=== PATIENT | female | born 1945 | race Caucasian/White ===

== ENCOUNTER 2016-03-19 18:13 | Emergency (ER) | payer OTHER ==
[2016-03-19 18:20] VITALS: BP 131/73; PULSE 101; RESP 18; TEMP 98.1; O2SAT 91
[2016-03-19] MEDS ORDERED: LIDOCAINE 2% JELLY 5 ML TUBE ONE (19:03)
--- NOTE | 2016-03-19 19:05 | EDPHY ---
H & P Time Seen by Provider: 03/19/16 19:00 HPI/ROS: HPI: 70-year-old female presents to emergency department with chief concern right coleman laceration. Occurred 1 hour prior to arrival when she bumped her right chin on a wooden cabinet in her garage. She is up-to-date with tetanus. Incurred no other injury at time of incident. I have thin skin. No weakness , numbness, or tingling of her lower extremity. Primary care providers Dr. Ferris. ROS:10 point review of systems is negative other than as stated in HPI Smoking Status: Never smoked Physical Exam: Vital signs stable, reviewed by me General: Awake, alert, calm, cooperative. No acute distress. Head: Normalocephalic. Atraumatic. EENT: PERRLA. EOMI. CV: Distal pulses 2+ bilaterally. Brisk cap refill all extremities. Neuro: Alert. Oriented x 3. Speech clear. Sensation intact all extremities. Skin: Skin warm, dry, very thin. There is a 2.5 cm x 3 cm skin tear on the anterior right mid coleman. Musculoskeletal: Strength 5+ all extremities. Constitutional: Initial Vital Signs Temperature (C) 36.7 C 03/19/16 18:18 Heart Rate 101 H 03/19/16 18:18 Respiratory Rate 18 03/19/16 18:18 Blood Pressure 131/73 H 03/19/16 18:18 O2 Sat (%) 91 L 03/19/16 18:18 O2 Delivery Mode Room Air Allergies/Adverse Reactions: amoxicillin trihydrate [From Augmentin] Allergy (Severe, Verified 03/19/16 18:17 ) SEVERE VOMITING budesonide [From Symbicort] Allergy (Severe, Verified 03/19/16 18:17) CHEST PAIN meperidine HCl [From Demerol] Allergy (Severe, Verified 03/19/16 18:17) HALLUCINATIONS latex [Latex] Allergy (Intermediate, Verified 03/19/16 18:17) Rash formoterol fumarate [From Symbicort] Allergy (Unknown, Verified 03/19/16 18:17) clindamycin Allergy (Verified 03/19/16 18:17) erythromycin base Allergy (Verified 03/19/16 18:17) fluticasone propionate [From Advair Diskus] Allergy (Verified 03/19/16 18:17) CHEST PAIN salmeterol xinafoate [From Advair Diskus] Allergy (Verified 03/19/16 18:17) CHEST PAIN tetracycline [Tetracycline] Allergy (Verified 03/19/16 18:17) THROAT SWELLS Home Medications: Medication Instructions Recorded Aspirin EC [Aspirin EC 81 mg (*)] 81 mg PO DAILY 03/19/16 Atorvastatin Calcium 80 mg PO 03/19/16 Beclomethasone Qvar 80 [Qvar 80 2 puffs IH 03/19/16 (*)] Bethanechol [Urecholine (*)] 25 mg PO AC 03/19/16 Hydrochlorothiazide [HCTZ (*)] 25 mg PO DAILY 03/19/16 Levothyroxine [Synthroid 112 mcg 112 mcg PO DAILY06 03/19/16 (*)] Losartan Potassium [Cozaar 50 mg 100 mg PO 03/19/16 (*)] Nitroglycerin [Nitrostat 0.4 mg 0.4 mg SL 03/19/16 (*)] Potassium Cl [Klor-Con] 10 meq PO 03/19/16 Pregabalin [Lyrica 50mg (*)] 50 mg PO 03/19/16 Promethazine HCl [Phenergan 25mg 25 mg PO 03/19/16 (*)] SUMAtriptan [Imitrex 50 MG (*)] 100 mg PO 03/19/16 Zolpidem Tartrate [Ambien Cr] 6.25 mg PO 03/19/16 morphINE IR [morphINE IR 15 mg (*)] 15 mg PO 03/19/16 morphINE SR [Ms Contin/Oramorph 15 15 mg PO BID 03/19/16 mg (*)] traZODone [traZODONE 50MG (*)] 50 mg PO 03/19/16 Medical Decision Making Procedures: After verbal consent was obtained and risks and benefits explained, the laceration was anesthetized using let gel. Flap laceration then irrigated per protocol by avionics repair technician. Under sterile procedure, the wound was explored to its base with a gloved finger and no foreign body was identified. No deep structure identified. Steri-Strips applied. Procedure performed by myself. Procedure was simple. Pt tolerated the procedure well. ED Course/Re-evaluation: Let gel applied. Cleanse per protocol. Steri-Strips applied. Dressing applied. Patient tolerated. Up-to-date with tetanus. Departure - Departure Disposition: Home, Routine, Self-Care Clinical Impression: Skin tear Condition: Good Instructions: Skin Tear (ED) Additional Instructions: Leave dressing on for 48 hours Follow up with primary care provider Dr. Ferris for recheck within 2-3 days without fail--When you call to schedule appointment, please let the office know you are an "ER follow up" appointment" There after, daily, wash with warm, soapy water gently. Apply antibiotic ointment. Let Steri-Strips fall off on their own. If you develop sign of infection return promptly for recheck Referrals: [place],. [Primary Care Provider] - As per Instructions
== END 2016-03-19 19:57 | disposition home or self-care (01) ==
DX: S81.811A Laceration without foreign body, right lower leg, initial encounter (principal); Z79.82 Long term (current) use of aspirin; Z91.040 Latex allergy status; W22.8XXA Striking against or struck by other objects, initial encounter

== ENCOUNTER 2016-03-22 11:39 | Emergency (ER) | payer OTHER ==
[2016-03-22 11:42] VITALS: RESP 16
[2016-03-22] MEDS ORDERED: NS 1,000 ML IV ONE (12:00)
--- NOTE | 2016-03-22 12:01 | EDPHY ---
HPI/HX/ROS/PE/MDM Narrative: Chief complaint: Rectal pain HPI: 70-year-old female presenting with 6 days of rectal pain. Patient states that she had a bowel movement 6 days ago and after that felt a large bulging around her rectum. She thought this might be a hemorrhoid she has had hemorrhoids in the past. It is persistent getting increasingly painful. She has not had a bowel movement for 6 days. She has also had some difficulty urinating. Does not have a history of the same. No fevers or chills. No nausea or vomiting. Rectal area is very uncomfortable. ROS: 10 point Review of Systems is negative except as noted in the HPI. Physical exam: Gen: Awake, Alert, No Distress HEENT: Nose: no rhinorrhea Eyes: PERRLA, EOMI Mouth: Moist mucosa Neck: Supple, no JVD Chest: nontender, lungs clear to auscultation Heart: S1, S2 normal, no murmur Abd: Soft, non-tender, no guarding, moderately distended Rectal: Patient has a 2-3 cm rectal prolapse. Is pink and well perfused. Back: no CVA tenderness, no midline tenderness Ext: no edema, non-tender Skin: no rash Neuro: CN II-XII intact, Sensation grossly intact, Strength 5/5 in bilateral upper and lower extremities ED Course: 70-year-old with rectal prolapse. Will place an IV so we can give her IV analgesia possible sedation for reduction. Patient also has urinary tension with 500 mL urine in her bladder. Will place a Lang catheter to decompress the bladder prior to rectal prolapse reduction attempt. Procedure note: Prolapsed rectum reduction Indication: Prolapse rectum. Patient was premedicated with 50 mcg of fentanyl. The prolapse rectum was inspected noted to be pink and well perfused. Manual gentle pressure was applied to reduce the edema. Over the course of several minutes there was noted reduction in the swelling and the prolapse easily reduced through the anal verge. The prolapse remained in place. Patient tolerated the procedure well. There were no complications. Repeat exam shows persistent reduction. Abdominal exam was soft and benign. Patient is discharged with instructions to continue with the stool softeners. She is to avoid straining on the toilet. I will refer her to Dr. Omer, general surgery for follow-up for possible surgical repair. It should return I have instructed her how she can attempt reduction on her own. If this is unsuccessful she should return to the emergency department for further evaluation. - Data Points Laboratory Results: Laboratory Results 03/22/16 12:25 03/22/16 12:25 WBC 6.65 10^3/uL (3.80-9.50) RBC 4.01 L 10^6/uL (4.18-5.33) Hgb 12.4 L g/dL (12.6-16.3) Hct 37.0 L % (38.0-47.0) MCV 92.3 fL (81.5-99.8) MCH 30.9 pg (27.9-34.1) MCHC 33.5 g/dL (32.4-36.7) RDW 13.6 % (11.5-15.2) Plt Count 206 10^3/uL (150-400) MPV 9.0 fL (8.7-11.7) Neut % (Auto) 66.5 % (39.3-74.2) Lymph % (Auto) 19.4 % (15.0-45.0) [place] % (Auto) 10.7 % (4.5-13.0) Eos % (Auto) 2.7 % (0.6-7.6) Baso % (Auto) 0.2 L % (0.3-1.7) Nucleat RBC Rel Count 0.0 % (0.0-0.2) Absolute Neuts (auto) 4.43 10^3/uL (1.70-6.50) Absolute Lymphs (auto) 1.29 10^3/uL (1.00-3.00) Absolute Monos (auto) 0.71 10^3/uL (0.30-0.80) Absolute Eos (auto) 0.18 10^3/uL (0.03-0.40) Absolute Basos (auto) 0.01 L 10^3/uL (0.02-0.10) Absolute Nucleated RBC 0.00 10^3/uL (0-0.01) Immature Gran % 0.5 % (0.0-1.1) Immature Gran # 0.03 10^3/uL (0.00-0.10) Sodium Pending Potassium Pending Chloride Pending Carbon Dioxide Pending Anion Gap Pending BUN Pending Creatinine Pending Estimated GFR Pending Glucose Pending Calcium Pending Medications Given: Discontinued Medications Sodium Chloride (Ns) 1,000 mls @ 0 mls/hr IV ONCE ONE PRN Reason: Wide Open Stop: 03/22/16 12:01 Last Admin: 03/22/16 12:27 Dose: 1,000 mls General Time Seen by Provider: 03/22/16 11:49 Initial Vital Signs: Initial Vital Signs Temperature (C) 36.4 C 03/22/16 11:40 Heart Rate 107 H 03/22/16 11:40 Respiratory Rate 16 03/22/16 11:40 Blood Pressure 150/74 H 03/22/16 11:40 O2 Sat (%) 93 03/22/16 11:40 O2 Delivery Mode Room Air Allergies/Adverse Reactions: amoxicillin trihydrate [From Augmentin] Allergy (Severe, Verified 03/19/16 18:17 ) SEVERE VOMITING budesonide [From Symbicort] Allergy (Severe, Verified 03/19/16 18:17) CHEST PAIN meperidine HCl [From Demerol] Allergy (Severe, Verified 03/19/16 18:17) HALLUCINATIONS latex [Latex] Allergy (Intermediate, Verified 03/19/16 18:17) Rash formoterol fumarate [From Symbicort] Allergy (Unknown, Verified 03/19/16 18:17) clindamycin Allergy (Verified 03/19/16 18:17) erythromycin base Allergy (Verified 03/19/16 18:17) fluticasone propionate [From Advair Diskus] Allergy (Verified 03/19/16 18:17) CHEST PAIN salmeterol xinafoate [From Advair Diskus] Allergy (Verified 03/19/16 18:17) CHEST PAIN tetracycline [Tetracycline] Allergy (Verified 03/19/16 18:17) THROAT SWELLS Home Medications: Medication Instructions Recorded Aspirin EC [Aspirin EC 81 mg (*)] 81 mg PO DAILY 03/19/16 Atorvastatin Calcium 80 mg PO 03/19/16 Beclomethasone Qvar 80 [Qvar 80 2 puffs IH 03/19/16 (*)] Bethanechol [Urecholine (*)] 25 mg PO AC 03/19/16 Hydrochlorothiazide [HCTZ (*)] 25 mg PO DAILY 03/19/16 Levothyroxine [Synthroid 112 mcg 112 mcg PO DAILY06 03/19/16 (*)] Losartan Potassium [Cozaar 50 mg 100 mg PO 03/19/16 (*)] Nitroglycerin [Nitrostat 0.4 mg 0.4 mg SL 03/19/16 (*)] Potassium Cl [Klor-Con] 10 meq PO 03/19/16 Pregabalin [Lyrica 50mg (*)] 50 mg PO 03/19/16 Promethazine HCl [Phenergan 25mg 25 mg PO 03/19/16 (*)] SUMAtriptan [Imitrex 50 MG (*)] 100 mg PO 03/19/16 Zolpidem Tartrate [Ambien Cr] 6.25 mg PO 03/19/16 morphINE IR [morphINE IR 15 mg (*)] 15 mg PO 03/19/16 morphINE SR [Ms Contin/Oramorph 15 15 mg PO BID 03/19/16 mg (*)] traZODone [traZODONE 50MG (*)] 50 mg PO 03/19/16 Departure - Departure Disposition: Home, Routine, Self-Care Clinical Impression: Rectal prolapse Condition: Good Instructions: Rectal Prolapse (ED) Additional Instructions: Follow up with general surgeon, Dr. Omer, in 3-4 days for evaluation for possible surgical repair. If it should occur again you can try applying gentle pressure to the area. If unsuccessful return to the emergency department for further evaluation. Referrals: Vidal Omer MD [Medical Doctor] - As per Instructions
[2016-03-22 12:37] LABS: % IMMATURE GRANULYOCYTES 0.5 % (0.0-1.1); ABSOLUTE IMMATURE GRANULOCYTES 0.03 10^3/uL (0.00-0.10); ADD DIFF? NO; ADD MORPH? NO; ADD SCAN? NO; ATYPICAL LYMPHOCYTE FLAG 0 (0-99); FRAGMENT RBC FLAG 0 (0-99); HEMOGLOBIN 12.4 g/dL (12.6-16.3); LEFT SHIFT FLG 0 (0-99); LIPEMIA HEMOLYSIS FLAG 80 (0-99); MEAN CELL HEMOGLOBIN 30.9 pg (27.9-34.1); MEAN CELL HEMOGLOBIN CONCENTR. 33.5 g/dL (32.4-36.7); MEAN CELL VOLUME 92.3 fL (81.5-99.8); PLATELET CLUMPS FLAG 0 (0-99); PLATELET COUNT 206 10^3/uL (150-400); RED BLOOD CELL COUNT 4.01 10^6/uL (4.18-5.33); RED CELL DISTRIBUTION WIDTH 13.6 % (11.5-15.2)
[2016-03-22] MEDS ORDERED: fentaNYL 100 MCG/2 ML INJ ONE (12:53)
[2016-03-22 13:01] LABS: ANION GAP 13 mEq/L (8-16); CALCIUM 8.9 mg/dL (8.5-10.4); CARBON DIOXIDE 22 mEq/l (22-31); CHLORIDE 105 mEq/L (97-110); CREATININE 0.7 mg/dL (0.6-1.0); GLOMERULAR FILTRATION RATE > 60; GLUCOSE 69 mg/dL (70-100); POTASSIUM 3.7 mEq/L (3.5-5.2); SODIUM 140 mEq/L (134-144)
[2016-03-22 13:49] VITALS: O2SAT 97
[2016-03-22 13:50] VITALS: BP 123/64; PULSE 93; TEMP 97.3
== END 2016-03-22 13:50 | disposition home or self-care (01) ==
PROC: 0T9B70Z Drainage of Bladder with Drainage Device, Via Natural or Artificial Opening (ICD-10-PCS; principal; 2016-03-22)
DX: K62.3 Rectal prolapse (principal); Z91.040 Latex allergy status; Z79.82 Long term (current) use of aspirin
CPT/HCPCS: 51702; 99284; J3010

== ENCOUNTER 2016-03-23 09:47 | Emergency (ER) | payer OTHER ==
[2016-03-23] MEDS ORDERED: fentaNYL 100 MCG/2 ML INJ IVP ONE (10:31)
[2016-03-23 11:04] LABS: COLOR YELLOW; LEUKOCYTE ESTERASE,URINE NEGATIVE (NEGATIVE); NITRITE,URINE NEGATIVE (NEGATIVE)
--- NOTE | 2016-03-23 11:20 | EDPHY ---
H & P Stated Complaint: unable to void x 24 hrs/prolapsed rectum seen yesterday HPI/ROS: Chief complaint: Rectal prolapse History of present illness: This is a 70-year-old female who presents to the emergency department for evaluation treatment of a rectal prolapse. Patient has had recurrent prolapse over the last week. She was seen yesterday for the same. She presents stating that she is again prolapse. In addition, she has developed urinary retention today. She is scheduled to see Dr. Antony Henley next Saturday. She denies other associated signs or symptoms including no fevers , no nausea or vomiting. Review of systems: A 10 point review of systems was obtained and other than described above was negative - Personal History Current Tetanus/Diphtheria Vaccine: Yes - Medical/Surgical History Hx Asthma: No Hx Chronic Respiratory Disease: No Hx Diabetes: No Hx Cardiac Disease: No Hx Renal Disease: No Hx Cirrhosis: No Hx Alcoholism: No Hx HIV/AIDS: No Hx Splenectomy or Spleen Trauma: No Other PMH: gastroparesis/chronic pain/neck/back/htn/insomnia/partial paralysis of diaphragm - Social History Smoking Status: Never smoked - Physical Exam Exam: General Appearance: Alert and no distress. Eyes: Pupils equal and round no injection. Respiratory: Chest is nontender, lungs are clear to auscultation. Cardiac: regular rate and rhythm. Gastrointestinal: Abdomen is soft and nontender, no masses, bowel sounds normal. Evaluation of the anal region does show an obvious rectal prolapse. Musculoskeletal: Neck is supple and nontender. Extremities have full range of motion and are nontender. Skin: No rashes or lesions. Constitutional: Initial Vital Signs Temperature (C) 36.6 C 03/23/16 09:50 Heart Rate 94 03/23/16 09:50 Respiratory Rate 18 03/23/16 09:50 Blood Pressure 117/60 03/23/16 09:50 O2 Sat (%) 94 03/23/16 09:50 O2 Delivery Mode Room Air Allergies/Adverse Reactions: amoxicillin trihydrate [From Augmentin] Allergy (Severe, Verified 03/23/16 09:49 ) SEVERE VOMITING budesonide [From Symbicort] Allergy (Severe, Verified 03/23/16 09:49) CHEST PAIN meperidine HCl [From Demerol] Allergy (Severe, Verified 03/23/16 09:49) HALLUCINATIONS latex [Latex] Allergy (Intermediate, Verified 03/23/16 09:49) Rash formoterol fumarate [From Symbicort] Allergy (Unknown, Verified 03/23/16 09:49) clindamycin Allergy (Verified 03/23/16 09:49) erythromycin base Allergy (Verified 03/23/16 09:49) fluticasone propionate [From Advair Diskus] Allergy (Verified 03/23/16 09:49) CHEST PAIN salmeterol xinafoate [From Advair Diskus] Allergy (Verified 03/23/16 09:49) CHEST PAIN tetracycline [Tetracycline] Allergy (Verified 03/23/16 09:49) THROAT SWELLS Home Medications: Medication Instructions Recorded Aspirin EC [Aspirin EC 81 mg (*)] 81 mg PO DAILY 03/19/16 Atorvastatin Calcium 80 mg PO 03/19/16 Beclomethasone Qvar 80 [Qvar 80 2 puffs IH 03/19/16 (*)] Bethanechol [Urecholine (*)] 25 mg PO AC 03/19/16 Hydrochlorothiazide [HCTZ (*)] 25 mg PO DAILY 03/19/16 Levothyroxine [Synthroid 112 mcg 112 mcg PO DAILY06 03/19/16 (*)] Losartan Potassium [Cozaar 50 mg 100 mg PO 03/19/16 (*)] Nitroglycerin [Nitrostat 0.4 mg 0.4 mg SL 03/19/16 (*)] Potassium Cl [Klor-Con] 10 meq PO 03/19/16 Pregabalin [Lyrica 50mg (*)] 50 mg PO 03/19/16 Promethazine HCl [Phenergan 25mg 25 mg PO 03/19/16 (*)] SUMAtriptan [Imitrex 50 MG (*)] 100 mg PO 03/19/16 Zolpidem Tartrate [Ambien Cr] 6.25 mg PO 03/19/16 morphINE IR [morphINE IR 15 mg (*)] 15 mg PO 03/19/16 morphINE SR [Ms Contin/Oramorph 15 15 mg PO BID 03/19/16 mg (*)] traZODone [traZODONE 50MG (*)] 50 mg PO 03/19/16 Hydrocortisone Acetate [Anucort-Hc] 25 mg RC BID #10 supp.rect 02/10/17 Medical Decision Making Procedures: Procedure: Rectal prolapse reduction Verbal consent was obtained from the patient. The patient was given 50 mcg of fentanyl IV. Gentle pressure was applied to the prolapse rectum. It easily slid back into place. Patient tolerated the procedure well. ED Course/Re-evaluation: Patient seen under the supervision of my secondary supervising physician Dr. Iasac Orozco. Patient presents to the emergency department for repeat rectal prolapse and urinary retention. She has had similar problems in the past. I have consulted with her surgeon, Dr. Antony Henley. He is comfortable with reduction of the rectal prolapse in the emergency department, this is performed. He is comfortable with the Lang catheter staying in place until he sees her in clinic next week. He does recommend patient be started on Anucort suppositories. I have discussed with the patient the use of steroids as she has listed allergies to steroids in EMR, she states she has no known history of allergies to steroids, she has taken multiple steroids without any problems. He is requesting a urinalysis. Urinalysis is unremarkable. She is discharged home with a prescription for the suppositories. She is asked to follow up with Dr. Henley next week as scheduled. Strict return precautions are given. Patient voiced understanding and agreement with plan. - Data Points Laboratory Results: 03/23/16 10:45 Urine Color YELLOW Urine Appearance CLEAR Urine pH 5.0 (5.0-7.5) Ur Specific [place] 1.013 (1.002-1.030) Urine Protein NEGATIVE (NEGATIVE) Urine Ketones TRACE H (NEGATIVE) Urine Blood NEGATIVE (NEGATIVE) Urine Nitrate NEGATIVE (NEGATIVE) Urine Bilirubin NEGATIVE (NEGATIVE) Urine Urobilinogen NEGATIVE EU (0.2-1.0) Ur Leukocyte Esterase NEGATIVE (NEGATIVE) Ur Culture Indicated? NOT INDICATED (NI) Urine Glucose NEGATIVE (NEGATIVE) Medications Given: Discontinued Medications Fentanyl (Sublimaze) 50 mcg IVP EDNOW ONE Stop: 03/23/16 10:32 Last Admin: 03/23/16 10:45 Dose: 50 mcg Departure - Departure Disposition: Home, Routine, Self-Care Clinical Impression: Rectal prolapse Condition: Good Instructions: Acute Urinary Retention in Women (ED), Rectal Prolapse (ED), Lang Catheter Placement and Care (ED) Additional Instructions: Follow-up with Dr. Henley next week as discussed If symptoms worsen or new symptoms develop return to the emergency department for recheck Referrals: Antony Henley MD [Medical Doctor] - As per Instructions Prescriptions: Hydrocortisone Acetate [Anucort-Hc] 25 mg RC BID #10 supp.rect
[2016-03-23 11:47] VITALS: BP 133/61; PULSE 80; RESP 16; TEMP 97.5; O2SAT 92
== END 2016-03-23 11:49 | disposition home or self-care (01) ==
PROC: 0T9B70Z Drainage of Bladder with Drainage Device, Via Natural or Artificial Opening (ICD-10-PCS; principal; 2016-03-23)
DX: K62.3 Rectal prolapse (principal); I10 Essential (primary) hypertension; R33.9 Retention of urine, unspecified; Z91.040 Latex allergy status; Z79.82 Long term (current) use of aspirin
CPT/HCPCS: 51702; 96374; 99284; J3010

== ENCOUNTER → 2016-04-24 | Day surgery (SDC) | payer OTHER ==
[~2016-04-24] MED LIST: HYDROmorphONE/DILAUDID 1 MG/ML SYR ONE; LIDOCAINE 1% 5 ML SDV ID PRN; LR 1,000 ML IV ONE; MIDAZOLAM 2 MG/2 ML VIAL ONE; PROPOFOL/EMULSION 500 MG/50 ML BOTTLE IV ONE
[2016-04-24 05:59] VITALS: RESP 18; TEMP 97.5
--- NOTE | 2016-04-24 07:11 | EDPHY ---
HPI/HX/ROS/PE/MDM Narrative: CHIEF COMPLAINT: Rectal pain HPI: The patient is a 70 year old female with rectal prolapse, who complains of rectal pain. The patient developed a rectal prolapse in early March. She is usually able to reduce it, but states it comes out every bowel movement. For the past 4 days she has not been able to reduce it. She states it is very painful and she has lost control of her bowels. She is scheduled for a colonoscopy later today, but was only able to do half of the prep because she was unable to control her bowels and had a significant amount of pain. She is scheduled for surgery in May. REVIEW OF SYSTEMS: Aside from elements discussed in the HPI, a comprehensive 10-point review of systems was reviewed and is negative. PMH: Gastroparesis, Chronic pain, Insomnia, Partial paralysis of diaphragm. SOCIAL HISTORY: . PHYSICAL EXAM: General: Patient is alert, in no acute distress. ENT: Eyes are normal to inspection. ENT inspection normal. Neck: Normal inspection. Full range of motion. Respiratory: No respiratory distress. Breath sounds normal bilaterally. Cardiovascular: Regular rate and rhythm. Strong peripheral pulses. Abdomen: The abdomen is nontender to palpation. There are no peritoneal signs. There are normal bowel sounds. Rectal: Rectum prolapse about 2 inches, easily reduced with minimal pressure. Back: Normal to inspection. No tenderness to palpation. Skin: Normal color. No rash. Warm and dry. Extremities: Normal appearance. Full range of motion. Neuro: Oriented x3. Normal motor function. Normal sensory function. ED Course: 0715: I spoke to Dr. Moody, Gastroenterology, who recommends patient have colonoscopy as scheduled. General Time Seen by Provider: 04/24/16 06:52 Initial Vital Signs: Initial Vital Signs Temperature (C) 36.4 C 04/24/16 05:53 Heart Rate 98 04/24/16 05:53 Respiratory Rate 18 04/24/16 05:53 Blood Pressure 121/80 H 04/24/16 05:53 O2 Sat (%) 93 04/24/16 05:53 O2 Delivery Mode Room Air Allergies/Adverse Reactions: amoxicillin trihydrate [From Augmentin] Allergy (Severe, Verified 04/24/16 05:55 ) SEVERE VOMITING budesonide [From Symbicort] Allergy (Severe, Verified 04/24/16 05:55) CHEST PAIN meperidine HCl [From Demerol] Allergy (Severe, Verified 04/24/16 05:55) HALLUCINATIONS formoterol fumarate [From Symbicort] Allergy (Unknown, Verified 04/24/16 05:55) clindamycin Allergy (Verified 04/24/16 05:55) Swelling/neck,face,throat erythromycin base Allergy (Verified 04/24/16 05:55) Swelling/neck,face,throat fluticasone propionate [From Advair Diskus] Allergy (Verified 04/24/16 05:55) CHEST PAIN salmeterol xinafoate [From Advair Diskus] Allergy (Verified 04/24/16 05:55) CHEST PAIN tetracycline [Tetracycline] Allergy (Verified 04/24/16 05:55) Anaphylaxis Home Medications: Medication Instructions Recorded Aspirin EC [Aspirin EC 81 mg (*)] 03/19/16 Atorvastatin Calcium 03/19/16 Hydrochlorothiazide [HCTZ (*)] 03/19/16 Levothyroxine [Synthroid 112 mcg 03/19/16 (*)] Losartan Potassium [Cozaar 50 mg 03/19/16 (*)] Nitroglycerin [Nitrostat 0.4 mg 03/19/16 (*)] Potassium Cl [Klor-Con] 03/19/16 Zolpidem Tartrate [Ambien Cr] 03/19/16 morphINE IR [morphINE IR 15 mg (*)] 03/19/16 morphINE SR [Ms Contin/Oramorph 15 03/19/16 mg (*)] Ranitidine HCl 04/23/16 Departure - Departure Disposition: Home, Routine, Self-Care Clinical Impression: Rectal prolapse Condition: Good Instructions: Rectal Prolapse (ED) Additional Instructions: Please proceed to Dr. Galan's office to have colonoscopy as scheduled. Referrals: BRENDA MOORE [Other] - As per Instructions Bean Galan MD [Medical Doctor] - As per Instructions Report Scribed for: Colin Wilson Report Scribed by: Eugenia Sterling Date of Report: 04/24/16 Time of Report: 07:17
[2016-04-24 08:35] VITALS: BP 134/76; PULSE 75; O2SAT 94
== END | disposition home or self-care (01) ==
LOC: FSGY 08:23
PROVIDERS: ATTEND Internal Medicine Gastroenterology
PROC: 0DBE8ZZ Excision of Large Intestine, Via Natural or Artificial Opening Endoscopic (ICD-10-PCS; principal; 2016-04-24)
DX: D12.6 Benign neoplasm of colon, unspecified (principal); K62.3 Rectal prolapse; Z79.82 Long term (current) use of aspirin; Z86.010 Personal history of colon polyps
CPT/HCPCS: J1170; J2250; J2704

== ENCOUNTER 2016-05-22 05:46 | Inpatient (IN) | payer OTHER ==
[2016-05-22] MEDS ORDERED: LIDOCAINE 1% 2 ML INJ ONE (05:56)
[2016-05-22] MEDS ORDERED: LR 1,000 ML IV ONE (06:30)
[2016-05-22] MEDS ORDERED: LIDOCAINE 1% 5 ML SDV ID PRN (06:30)
[2016-05-22] MEDS ORDERED: fentaNYL 100 MCG/2 ML INJ ONE ×4 (06:51→10:24)
[2016-05-22] MEDS ORDERED: PROPOFOL 200 MG/20 ML VIAL ONE ×2 (06:52→07:44)
[2016-05-22] MEDS ORDERED: SKIN ADHESIVE (DERMABOND) 1 EACH TP ONE (07:01)
[2016-05-22] MEDS ORDERED: MIDAZOLAM 2 MG/2 ML VIAL ONE ×4 (07:14→09:35)
[2016-05-22] MEDS ORDERED: morphINE PF 5 MG/10 ML INJ ONE (07:21)
[2016-05-22] MEDS ORDERED: BUPIVACAINE/DEXTROSE 7.5MG/ML 2 ML SPINAL AMP SP ONE (07:27)
[2016-05-22] MEDS ORDERED: cefOXitin SODIUM 2 GM in D5W 100 ML IV ONE (07:30)
[2016-05-22] MEDS ORDERED: BUPIVACAINE/EPI 0.5% 30 ML SDV ONE (08:48)
[2016-05-22] MEDS ORDERED: ONDANSETRON 4 MG/2 ML VIAL IVP PRN (09:19)
[2016-05-22] MEDS ORDERED: ZOLPIDEM TARTRATE 5 MG TAB PO PRN (09:19)
[2016-05-22] MEDS ORDERED: HYDROmorphONE/DILAUDID 1 MG/ML SYR ONE (09:20)
--- NOTE | 2016-05-22 09:30 | POSTOPPROG ---
Post Op Note Date of Operation: 05/22/16 Surgeon: Antony Henley Linen Checker: Rosaline Reich PA-C Anesthesia: Spinal Pre-op Diagnosis: rectal prolapse Post-op Diagnosis: same Indication: rectal prolapse Procedure: transabdominal rectoplexy Findings: minimally redundant sigmoid colon Inf/Abcess present in the surg proc area at time of surgery?: No EBL: 50-100 Complications: none Specimen(s): none
[2016-05-22] MEDS ORDERED: HYDROmorphONE/DILAUDID 2 MG/ML INJ ONE (09:43)
[2016-05-22] MEDS ORDERED: MIDAZOLAM 2 MG/2 ML VIAL IVP SCH (10:00)
[2016-05-22] MEDS ORDERED: KETOROLAC 30 MG/1 ML SDV ONE (10:08)
--- NOTE | 2016-05-22 10:23 | GOP ---
[f rep st] OPERATIVE REPORT DATE OF OPERATION: 05/22/2016 SURGEON: Antony Henley MD ADMIN SECRETARY: Rosaline Reich PA-C. ANESTHESIA: Spinal with MAC. ANESTHESIOLOGIST: Wiliam Esposito MD. PREOPERATIVE DIAGNOSIS: Symptomatic rectal procidentia. POSTOPERATIVE DIAGNOSIS: Symptomatic rectal procidentia. PROCEDURE PERFORMED: Transabdominal rectopexy. FINDINGS: See below. 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 She is undergoing open repair at this time. Risks and benefits were explained, including bleeding, infection, recurrence of prolapse, bowel, bladder or ureter injury. All questions were answered. She desires to proceed. DESCRIPTION OF PROCEDURE: Spinal anesthesia was placed. A prior left lower quadrant partial colectomy incision was reopened. The abdominal cavity was entered. There was mild sigmoid redundancy noted. I opted not to proceed with a sigmoid resection. The rectum was elevated up into the operative field. The lateral and anterior peritoneal reflections were scored using electrocautery. The sacrum was cleared back to normal presacral tissue. Multiple Prolene sutures were placed through the presacral soft tissues on either side of the rectum, allowing for the lateral aspect of the rectum to be used for the rectopexy. The rectum was pexed appropriately taut against the sacral hollow. No visceral injury was noted. Satisfactory hemostasis was assured. A normal left ovary was noted. No other pelvic abnormalities were visualized. The abdomen was closed in layers with absorbable suture and Dermabond. The patient was taken to recovery uneventfully. /[id number]/MODL MTDD
[2016-05-22] MEDS ORDERED: OXYCODONE/APAP 5/325 TAB ONE (10:30)
[2016-05-22] MEDS: DOCUSATE SODIUM 100 MG CAP PO SCH ×2 (13:11→21:35)
[2016-05-22] MEDS: PSYLLIUM METAMUCIL 1 PKT PO SCH (13:11)
[2016-05-22] MEDS: KETOROLAC 15 MG/1 ML SDV IVP SCH ×3 (13:11→23:08)
[2016-05-22] MEDS ORDERED: NITROGLYCERIN 0.4 MG BTL SL PRN (15:19)
[2016-05-22] MEDS: morphINE SR 15 MG TAB PO SCH ×2 (15:44→21:34)
[2016-05-22] MEDS: HYDROCODONE/APAP 5/325 TAB PO PRN ×2 (15:47→19:38)
[2016-05-22] MEDS: HYDROmorphONE/DILAUDID 1 MG/ML SYR IVP PRN ×2 (18:16→22:36)
[2016-05-22] MEDS ORDERED: LOSARTAN POTASSIUM 50 MG TAB PO SCH (21:00)
[2016-05-22] MEDS ORDERED: traZODone 100 MG TAB PO SCH (21:00)
[2016-05-22] MEDS ORDERED: POTASSIUM CL 10 MEQ TAB PO SCH (21:00)
[2016-05-22] MEDS ORDERED: ATORVASTATIN CALCIUM 40 MG TAB PO SCH (21:00)
[2016-05-22] MEDS: FAMOTIDINE 20 MG TAB PO SCH (21:35)
[2016-05-23] MEDS: KETOROLAC 15 MG/1 ML SDV IVP SCH (05:21)
[2016-05-23] MEDS: HYDROCODONE/APAP 5/325 TAB PO PRN (05:21)
[2016-05-23] MEDS ORDERED: LEVOTHYROXINE 112 MCG TAB PO SCH (06:00)
[2016-05-23] MEDS: DOCUSATE SODIUM 100 MG CAP PO SCH (08:04)
[2016-05-23] MEDS: FAMOTIDINE 20 MG TAB PO SCH (08:04)
[2016-05-23] MEDS: PSYLLIUM METAMUCIL 1 PKT PO SCH (08:05)
[2016-05-23] MEDS: morphINE SR 15 MG TAB PO SCH (08:05)
--- NOTE | 2016-05-23 08:08 | SOAPPROG ---
SOAP Progress Note Assessment/Plan: Assessment:no problems. pain controlled. no nausea. voiding. avss. comfortable. abd soft. incis clean. doing well. home today. Plan: 05/23/16 08:08 Objective: Vital Signs Temp Pulse Resp BP Pulse Ox 37.1 C 94 18 117/62 98 05/23/16 04:00 05/23/16 04:00 05/23/16 04:00 05/23/16 04:00 05/23/16 04:00 05/22/16 05/23/16 05/24/16 05:59 05:59 05:59 Intake Total 3020 Output Total 220 Balance 2800 ICD10 Worksheet Patient Problems: Problems Problem Status Onset ESBL (extended spectrum beta-lactamase) producing bacteria infection Acute 06/25 Rectal prolapse Acute Rectal prolapse Acute
--- NOTE | 2016-05-23 08:31 | GDS ---
[f rep st] DISCHARGE SUMMARY REASON FOR ADMISSION: Rectal prolapse. HOSPITAL COURSE: 70-year-old female with a significant history of rectal procidentia. She underwent an open transabdominal rectopexy. She had a benign perioperative course. She was discharged to home on postoperative day #1. She was ambulating and voiding without difficulty. She was tolerating a regular diet. She had adequate pain control with her oral analgesics. She was to continue all preoperative home medicines. She was given a new prescription for Percocet for breakthrough pain. She will be seen by Dr. Henley in 2 weeks as scheduled in followup. Full instructions were explained prior to leaving. Copy requested to: Cary Weiss /[id number]/MODL MTDD
[2016-05-23] MEDS ORDERED: POTASSIUM CL 20 MEQ TAB PO SCH (09:00)
[2016-05-23] MEDS ORDERED: HYDROCHLOROTHIAZIDE 25 MG TAB PO SCH (09:00)
[2016-05-23 09:03] VITALS: BP 148/59; PULSE 99; RESP 16; TEMP 98; O2SAT 93
[2016-05-23] MEDS: HYDROmorphONE/DILAUDID 1 MG/ML SYR IVP PRN (09:38)
[2016-05-24] MEDS ORDERED: ASPIRIN EC 81 MG TAB PO SCH (09:00)
== END 2016-05-23 10:47 | disposition home or self-care (01) | DRG 331 ==
LOC: F3E 05:46
PROVIDERS: ADMIT Surgery; ATTEND Surgery
PROC: 0DSP0ZZ Reposition Rectum, Open Approach (ICD-10-PCS; principal; 2016-05-22 07:15)
DX: K62.3 Rectal prolapse (principal); E03.9 Hypothyroidism, unspecified; I10 Essential (primary) hypertension; I25.10 Atherosclerotic heart disease of native coronary artery without angina pectoris; J44.9 Chronic obstructive pulmonary disease, unspecified; G47.33 Obstructive sleep apnea (adult) (pediatric)
CPT/HCPCS: J0694; J1170; J1885; J2250; J2274; J2704; J3010

== ENCOUNTER → 2017-03-13 | Outpatient (CLI) | payer OTHER | LOC: FIMAGING 16:17 | PROVIDERS: ATTEND Physical Medicine & Rehabilitation | DX: M48.03 Spinal stenosis, cervicothoracic region (principal) ==

== ENCOUNTER 2017-03-25 13:24 | Emergency (ER) | payer OTHER ==
--- NOTE | 2017-03-25 13:43 | CPEKG ---
Heart Rate: 74 RR Interval: 811 P-R Interval: 156 QRSD Interval: 74 QT Interval: 400 QTC Interval: 444 P [place]: 20 QRS [place]: 20 T Wave [place]: 30 EKG Severity - NORMAL ECG - EKG Impression: SINUS RHYTHM Electronically Signed By: Abhi Laws 25-Mar-2017 15:07:30
[2017-03-25 13:55] VITALS: TEMP 97.9
--- NOTE | 2017-03-25 13:55 | EDPHY ---
H & P Time Seen by Provider: 03/25/17 13:50 HPI/ROS: Chief complaint. Chest pain HPI. 71-year-old female with history of angina took her grandson to the doctor' s office because of influenza needing an IV for hydration. While at the physician's office she developed typical retrosternal chest discomfort. She took 3 nitroglycerin is of her own supply and then had a syncopal episode and fell out of the chair. She has no chest pain now. Symptoms lasted 15 min. She she says she has had these same chest pains many times in the past and this was not different. She was not injured. Apparently her commissary helper came to the quality control inspector heading's office and did an EKG which appeared to be nonacute. ROS Constitutional. no fever/chills, no weakness Eyes. no problems with vision ENT. no sore throat, no nasal drainage Cardiovascular. Chest pain Respiratory. no shortness of breath, no cough Abdominal. no abdominal pain, no nausea/vomiting, no diarrhea . no problems urinating MS. no calf pain/swelling, no neck/back pain, no joint pain Skin. no rash Lymph. no swollen glands Neuro. Syncope after nitroglycerin Past Medical/Surgical History: Past medical history is seen by per tension, coronary artery disease, dyslipidemia, gastroparesis, chronic pain rectal prolapse Social History: , nonsmoker, no alcohol Smoking Status: Former smoker Physical Exam: General Appearance: Alert well-developed female no distress vital signs are stable Eyes: Pupils equal and round no pallor or injection. ENT, Mouth: Mucous membranes are moist. Respiratory: There are no retractions, lungs are clear to auscultation. Cardiovascular: Regular rate and rhythm. Gastrointestinal: Abdomen is soft and nontender, no masses, bowel sounds normal. Neurological: Awake and alert, sensory and motor exams grossly normal. Skin: Warm and dry, no rashes. Musculoskeletal: Neck is supple nontender. Extremities symmetrical, full range of motion. Psychiatric: Patient is oriented X 3, there is no agitation. Constitutional: Initial Vital Signs Temperature (C) 36.6 C 03/25/17 13:52 Heart Rate 85 03/25/17 13:52 Respiratory Rate 18 03/25/17 13:52 Blood Pressure 119/78 03/25/17 13:52 O2 Sat (%) 91 L 03/25/17 13:52 O2 Delivery Mode Room Air Allergies/Adverse Reactions: amoxicillin trihydrate [From Augmentin] Allergy (Severe, Verified 04/24/16 05:55 ) SEVERE VOMITING budesonide [From Symbicort] Allergy (Severe, Verified 04/24/16 05:55) CHEST PAIN meperidine HCl [From Demerol] Allergy (Severe, Verified 04/24/16 05:55) HALLUCINATIONS formoterol fumarate [From Symbicort] Allergy (Unknown, Verified 04/24/16 05:55) clindamycin Allergy (Verified 04/24/16 05:55) Swelling/neck,face,throat erythromycin base Allergy (Verified 04/24/16 05:55) Swelling/neck,face,throat fluticasone propionate [From Advair Diskus] Allergy (Verified 04/24/16 05:55) CHEST PAIN salmeterol xinafoate [From Advair Diskus] Allergy (Verified 04/24/16 05:55) CHEST PAIN tetracycline [Tetracycline] Allergy (Verified 04/24/16 05:55) Anaphylaxis Home Medications: Medication Instructions Recorded Aspirin EC [Aspirin EC 81 mg (*)] 81 mg PO Q2D 03/19/16 Hydrochlorothiazide [HCTZ (*)] 25 mg PO DAILY 03/19/16 Levothyroxine [Synthroid 112 mcg 112 mcg PO DAILY06 03/19/16 (*)] Losartan Potassium [Cozaar 50 mg 100 mg PO HS 03/19/16 (*)] Nitroglycerin [Nitrostat 0.4 mg 0.4 mg PO Q5M PRN 03/19/16 (*)] Zolpidem Tartrate [Ambien Cr] 6.25 mg PO HS PRN 03/19/16 morphINE IR [morphINE IR 15 mg (*)] 15 mg PO BID PRN 03/19/16 morphINE SR [Ms Contin/Oramorph 15 15 mg PO TID 03/19/16 mg (*)] Atorvastatin Calcium [Lipitor 40 80 mg PO HS 05/22/16 mg (*)] Herbals/Supplements -Info Only 1 ea PO DAILY 05/22/16 Potassium Cl [Klor-Con 10 meq (RX)] 10 meq PO HS 05/22/16 Potassium Cl [Klor-Con 20 meq (*)] 20 meq PO DAILY 05/22/16 traZODone [traZODONE 100MG (*)] 100 mg PO HS 05/22/16 Docusate Sodium [Colace 100 MG (*)] 100 mg PO BID #0 cap 05/23/16 oxyCODONE HCL/ACETAMINOPHEN 1 each PO Q3-4PRN PRN #50 tablet 05/23/16 [Percocet 5-325 mg Tablet] Aldactone 03/25/17 Aspirin 03/25/17 Estrace Vaginal (*) 03/25/17 Fluticasone Furoate 03/25/17 Imitrex 03/25/17 Lyrica 03/25/17 Ms Contin 03/25/17 Neurontin 03/25/17 Phenergan 03/25/17 Temovate 03/25/17 Urecholine 03/25/17 Zantac 03/25/17 Zofran 03/25/17 Medical Decision Making - Diagnostics EKG Interpretation: EKG interpreted by me shows normal sinus rhythm normal interval and axis. QRS is normal there is no significant ST elevation or depression. No arrhythmia. The rate is 74 not changed from previous EKG Imaging Results: Imaging Impressions Chest X-Ray 03/25/17 13:56 Impression: Negative portable chest. Chest x-ray reviewed by me is negative for pneumonia Procedures: IV normal saline, monitor ED Course/Re-evaluation: On serial evaluations Patient is stable and without Symptoms. 2 sets of troponins are negative. At 4:50 p.m. patient and I discussed imaging lab EKG results. We discussed treatment plan including criteria for return importance of follow-up and further evaluation. She expresses understanding and agreement Differential Diagnosis: Patient had her usual angina and treated with 3 nitroglycerin tablets. However she got lightheaded and had a syncopal episode I assume that this is secondary to vasodilation. I considered acute coronary syndrome as well as pulmonary embolus. - Data Points Laboratory Results: Laboratory Results 03/25/17 13:42 03/25/17 13:42 03/25/17 03/25/17 03/25/17 15:54 13:42 13:42 WBC RBC Hgb Hct MCV MCH MCHC RDW Plt Count MPV Neut % (Auto) Lymph % (Auto) [place] % (Auto) Eos % (Auto) Baso % (Auto) Nucleat RBC Rel Count Absolute Neuts (auto) Absolute Lymphs (auto) Absolute Monos (auto) Absolute Eos (auto) Absolute Basos (auto) Absolute Nucleated RBC Immature Gran % Immature Gran # D-Dimer 0.37 ug/mLFEU ug/mLFEU (0.00-0.50) Sodium 139 mEq/L mEq/L (135-145) Potassium 4.1 mEq/L mEq/L (3.5-5.2) Chloride 101 mEq/L mEq/L (97-110) Carbon Dioxide 24 mEq/l mEq/l (22-31) Anion Gap 14 mEq/L mEq/L (8-16) BUN 21 mg/dL mg/dL (7-23) Creatinine 1.0 mg/dL mg/dL (0.6-1.0) Estimated GFR 55 Glucose 104 mg/dL H mg/dL (70-100) Calcium 10.0 mg/dL mg/dL (8.5-10.4) Troponin I < 0.012 ng/mL ng/mL < 0.012 ng/mL ng/mL (0.000-0.034) (0.000-0.034) 03/25/17 13:42 WBC 7.56 10^3/uL 10^3/uL (3.80-9.50) RBC 4.61 10^6/uL 10^6/uL (4.18-5.33) Hgb 14.1 g/dL g/dL (12.6-16.3) Hct 42.6 % % (38.0-47.0) MCV 92.4 fL fL (81.5-99.8) MCH 30.6 pg pg (27.9-34.1) MCHC 33.1 g/dL g/dL (32.4-36.7) RDW 15.2 % % (11.5-15.2) Plt Count 260 10^3/uL 10^3/uL (150-400) MPV 9.0 fL fL (8.7-11.7) Neut % (Auto) 51.0 % % (39.3-74.2) Lymph % (Auto) 36.2 % % (15.0-45.0) [place] % (Auto) 10.3 % % (4.5-13.0) Eos % (Auto) 1.5 % % (0.6-7.6) Baso % (Auto) 0.3 % % (0.3-1.7) Nucleat RBC Rel Count 0.0 % % (0.0-0.2) Absolute Neuts (auto) 3.86 10^3/uL 10^3/uL (1.70-6.50) Absolute Lymphs (auto) 2.74 10^3/uL 10^3/uL (1.00-3.00) Absolute Monos (auto) 0.78 10^3/uL 10^3/uL (0.30-0.80) Absolute Eos (auto) 0.11 10^3/uL 10^3/uL (0.03-0.40) Absolute Basos (auto) 0.02 10^3/uL 10^3/uL (0.02-0.10) Absolute Nucleated RBC 0.00 10^3/uL 10^3/uL (0-0.01) Immature Gran % 0.7 % % (0.0-1.1) Immature Gran # 0.05 10^3/uL 10^3/uL (0.00-0.10) D-Dimer Sodium Potassium Chloride Carbon Dioxide Anion Gap BUN Creatinine Estimated GFR Glucose Calcium Troponin I Departure - Departure Disposition: Home, Routine, Self-Care Clinical Impression: Syncope and collapse, Angina at rest Condition: Good Instructions: Angina (ED) Additional Instructions: Continue regular medications. Return for worsening chest discomfort or trouble breathing. Follow up with your regular physician for worsening or more frequent chest discomfort Referrals: Patient,NotPresent [Unknown] - As per Instructions
[2017-03-25 14:01] LABS: PLATELET COUNT 260 10^3/uL (150-400)
[2017-03-25 16:56] VITALS: BP 117/76
[2017-03-25 17:04] VITALS: PULSE 81; RESP 18; O2SAT 91
== END 2017-03-25 17:04 | disposition home or self-care (01) ==
LOC: EDUNIT#
DX: R42 Dizziness and giddiness (principal); I20.9 Angina pectoris, unspecified; I10 Essential (primary) hypertension; Z87.891 Personal history of nicotine dependence; Z79.82 Long term (current) use of aspirin

== ENCOUNTER → 2017-12-02 | Outpatient (CLI) | payer OTHER ==
[~2017-12-02] MED LIST changes: -HYDROmorphONE/DILAUDID 1 MG/ML SYR ONE; +IOPAMIDOL (ISOVUE-300) 100 ML BTL ONE; -LIDOCAINE 1% 5 ML SDV ID PRN; -LR 1,000 ML IV ONE; -MIDAZOLAM 2 MG/2 ML VIAL ONE; -PROPOFOL/EMULSION 500 MG/50 ML BOTTLE IV ONE
== END ==
LOC: FIMAGING 12:16
PROVIDERS: ATTEND Physician Assistant
DX: R10.32 Left lower quadrant pain (principal)
CPT/HCPCS: 74177; Q9967

== ENCOUNTER 2018-04-09 13:44 | Emergency (ER) | payer OTHER ==
[2018-04-09 14:05] LABS: PLATELET COUNT 188 10^3/uL (150-400)
--- NOTE | 2018-04-09 14:34 | EDPHY ---
H & P Time Seen by Provider: 04/09/18 13:47 HPI/ROS: CHIEF COMPLAINT: Sent from [facility] for possible perforation. HISTORY OF PRESENT ILLNESS: Patient states she went to her family practice doctor at [facility] today for medication refill and evaluation for chronic abdominal pain. She has chronic abdominal pain and gastroparesis which she says has not changed significantly. She states that the pain has been slightly worse over the last week or so. Per EMS she was noted to be hypoxic. Patient is post be on home O2 and has been noncompliant. She is also on multiple opiate medications for chronic pain. She denies any shortness of breath. She states she has abdominal pain but it is no worse than her normal chronic pain. She denies fevers or chills. She has had no significant diarrhea, dysuria, constipation. She does have occasional vomiting. Contents of 10 point review of systems otherwise negative except for what is mentioned in HPI. General Appearance: Alert, no distress. Eyes: Pupils equal and round no pallor or injection. ENT, Mouth: Mucous membranes moist. Respiratory: There are no retractions, lungs are clear to auscultation. Cardiovascular: Regular rate and rhythm. Gastrointestinal: Abdomen is soft with some diffuse mild tenderness, no masses , bowel sounds normal. Neurological: Awake, alert, no neurologic deficit. Skin: Warm and dry, no rashes. Musculoskeletal: Neck is supple nontender. Extremities are symmetrical, full range of motion, no edema. Psychiatric: Patient is oriented X 3, somewhat fidgety. Medical/surgical history: History of hypertension, coronary artery disease, high cholesterol, gastroparesis, chronic pain, insomnia, rectal prolapse, paralysis of the diaphragm. Social history: Denies tobacco, EtOH, drugs. Smoking Status: Former smoker Constitutional: Initial Vital Signs Temperature (C) 36.5 C 04/09/18 13:48 Heart Rate 87 04/09/18 13:48 Respiratory Rate 18 04/09/18 13:48 Blood Pressure 138/71 H 04/09/18 13:48 O2 Sat (%) 97 04/09/18 13:48 O2 Delivery Mode Nasal Cannula O2 (L/minute) 5 Allergies/Adverse Reactions: amoxicillin trihydrate [From Augmentin] Allergy (Verified 04/09/18 14:04) SEVERE VOMITING budesonide [From Symbicort] Allergy (Verified 04/09/18 14:04) CHEST PAIN clindamycin Allergy (Verified 04/09/18 14:04) vomitting erythromycin base Allergy (Verified 04/09/18 14:04) Swelling/neck,face,throat fluticasone propionate [From Advair Diskus] Allergy (Verified 04/09/18 14:04) CHEST PAIN formoterol fumarate [From Symbicort] Allergy (Verified 04/09/18 14:04) chest pain meperidine HCl [From Demerol] Allergy (Verified 04/09/18 14:04) HALLUCINATIONS salmeterol xinafoate [From Advair Diskus] Allergy (Verified 04/09/18 14:04) CHEST PAIN tetracycline [Tetracycline] Allergy (Verified 04/09/18 14:04) throat swelling Home Medications: Medication Instructions Recorded Aspirin EC [Aspirin EC 81 mg (*)] 03/19/16 Hydrochlorothiazide [HCTZ (*)] 03/19/16 Losartan Potassium [Cozaar 50 mg HS 03/19/16 (*)] Nitroglycerin [Nitrostat 0.4 mg Q5M PRN 03/19/16 (*)] Zolpidem Tartrate [Ambien Cr] HS PRN 03/19/16 morphINE SR [Ms Contin/Oramorph 15 TID 03/19/16 mg (*)] Herbals/Supplements -Info Only 05/22/16 Potassium Cl [Klor-Con 20 meq (*)] 05/22/16 traZODone [traZODONE 100MG (*)] HS 05/22/16 Zantac 03/25/17 Gabapentin 10/09/17 Rosuvastatin Calcium 10/09/17 Ondansetron HCl Pf [Zofran 4 mg 4 mg IVP Q4HRS PRN vial 10/10/17 Inj (*)] Estraderm 0.1 MG (RX) 04/09/18 Flexeril 10 MG (*) 5 mg 04/09/18 Lomotil Tab (*) 04/09/18 Os-Sandeep 500-Vit D3 600 Caplet 04/09/18 Phenergan 25mg (*) 04/09/18 Temovate Cream 04/09/18 Medical Decision Making - Diagnostics Imaging Results: Chest x-ray shows very elevated right hemidiaphragm with bowel gas visible. No free air. No other acute findings. Differential Diagnosis: Differential diagnosis includes but is not limited to intra-abdominal perforation, elevated right hemidiaphragm, opiate abuse, noncompliance with home O2. After evaluation no evidence of intra-abdominal perforation. Patient is on multiple narcotic medications which likely contributes to her hypoxia. She is also supposed to be on home O2 but is been non compliant. Reviewed importance of medication noncompliance and follow up with primary care for continuation of home O2. Patient understands follow-up and discharge plan. Stable for discharge. - Data Points Laboratory Results: Laboratory Results 04/09/18 13:50 04/09/18 13:50 04/09/18 04/09/18 13:50 13:50 WBC 9.87 10^3/uL H 10^3/uL (3.80-9.50) RBC 3.55 10^6/uL L 10^6/uL (4.18-5.33) Hgb 9.9 g/dL L g/dL (12.6-16.3) Hct 31.5 % L % (38.0-47.0) MCV 88.7 fL fL (81.5-99.8) MCH 27.9 pg pg (27.9-34.1) MCHC 31.4 g/dL L g/dL (32.4-36.7) RDW 16.0 % H % (11.5-15.2) Plt Count 188 10^3/uL 10^3/uL (150-400) MPV 9.2 fL fL (8.7-11.7) Neut % (Auto) 67.8 % % (39.3-74.2) Lymph % (Auto) 18.8 % % (15.0-45.0) [place] % (Auto) 10.9 % % (4.5-13.0) Eos % (Auto) 1.6 % % (0.6-7.6) Baso % (Auto) 0.1 % L % (0.3-1.7) Nucleat RBC Rel Count 0.0 % % (0.0-0.2) Absolute Neuts (auto) 6.68 10^3/uL H 10^3/uL (1.70-6.50) Absolute Lymphs (auto) 1.86 10^3/uL 10^3/uL (1.00-3.00) Absolute Monos (auto) 1.08 10^3/uL H 10^3/uL (0.30-0.80) Absolute Eos (auto) 0.16 10^3/uL 10^3/uL (0.03-0.40) Absolute Basos (auto) 0.01 10^3/uL L 10^3/uL (0.02-0.10) Absolute Nucleated RBC 0.00 10^3/uL 10^3/uL (0-0.01) Immature Gran % 0.8 % % (0.0-1.1) Immature Gran # 0.08 10^3/uL 10^3/uL (0.00-0.10) Sodium 132 mEq/L L mEq/L (135-145) Potassium 4.7 mEq/L mEq/L (3.5-5.2) Chloride 100 mEq/L mEq/L (97-110) Carbon Dioxide 22 mEq/l mEq/l (22-31) Anion Gap 10 mEq/L mEq/L (6-14) BUN 45 mg/dL H mg/dL (7-23) Creatinine 1.9 mg/dL H mg/dL (0.6-1.0) Estimated GFR 26 Glucose 98 mg/dL mg/dL (70-100) Calcium 8.5 mg/dL mg/dL (8.5-10.4) Departure - Departure Clinical Impression: Chronic abdominal pain Condition: Fair Instructions: Chronic Abdominal Pain (ED) Additional Instructions: Please use home O2 as prescribed. You should see her primary care doctor in the next 24 hr for refills of your medications as well as your home oxygen. Return to the emergency department for new or concerning symptoms. Referrals: BRENDA SMALLS MD [Primary Care Provider] - As per Instructions
[2018-04-09 15:02] VITALS: BP 138/68
== END 2018-04-09 15:14 | disposition home or self-care (01) ==
LOC: EDUNIT# → EDAGE
DX: R10.9 Unspecified abdominal pain (principal); G89.29 Other chronic pain; K31.84 Gastroparesis; I10 Essential (primary) hypertension; I25.10 Atherosclerotic heart disease of native coronary artery without angina pectoris; F11.90 Opioid use, unspecified, uncomplicated; E78.00 Pure hypercholesterolemia, unspecified; Z87.891 Personal history of nicotine dependence

== ENCOUNTER 2018-04-10 15:19 | Inpatient (IN) | payer OTHER ==
[2018-04-10] MEDS ORDERED: NS 500 ML IV ONE ×2 (16:14→19:18)
--- NOTE | 2018-04-10 16:27 | EDPHY ---
H & P Time Seen by Provider: 04/10/18 16:01 HPI/ROS: HPI Returns to ER with . Free air on chest x-ray from yesterday. Abdominal pain. 72-year-old female by private vehicle with her . This patient was seen at [facility] yesterday for abdominal pain. She had a chest x-ray done at [facility] yesterday. There was thought to be free air under her diaphragms on this chest x-ray. She was sent here for further evaluation. She was sent home from the emergency department yesterday. The radiologist here read the chest x- ray as free air underneath the diaphragms as well. She was contacted at home and told to come back to the emergency department yesterday. She comes back to the emergency department today. She states that she has had continued abdominal pain which she describes as mid abdominal aching with sharp pain. Please see past medical history for further details. ROS: Constitutional: No fever, no chills. As above. Eyes: No discharge. No changes in vision. ENT: No sore throat. No nasal congestion or rhinorrhea. Respiratory: No cough. No shortness of breath. Cardiac: No chest pain, no palpitations. Gastrointestinal: As above, no vomiting, no diarrhea. Genitourinary: No hematuria. No dysuria or increased frequency with urination. Musculoskeletal: No back pain. No neck pain. No myalgias or arthralgias. Skin: No rashes. Neurological: No headache. No focal weakness or altered sensation. Past medical history: History of a paralyzed right hemidiaphragm, she is supposed to be on oxygen 3 L nasal cannula secondary to this, hypertension, coronary artery disease, hyperlipidemia, gastroparesis, chronic pain, insomnia for which she takes Ambien, rectal prolapse. Social history: She is currently here with her . No alcohol. Nonsmoker. Physical Exam: General Appearance: Sleepy but arouses to voice, she is not in distress. On nasal cannula oxygen at 3 L. She does answer questions appropriately but does seem mildly confused. This patient appears generally well-hydrated and well- nourished. Eyes: Pupils equal and round no pallor or injection. No lid edema, erythema or injection. Respiratory: There are no retractions, lungs are clear to auscultation anteriorly with good air movement bilaterally. No tachypnea. Cardiovascular: Regular rate and rhythm. No murmur. Gastrointestinal: Abdomen is soft with mild and vague tenderness on palpation throughout, no masses, bowel sounds normal. No focal tenderness at McBurney's point. No Mitchell sign. Rectal exam: No gross blood. No significant stool in the rectal vault. Hemoccult testing sent. Neurological: Motor sensory function is grossly intact. Cranial nerves are normal. Gait is normal. Skin: Warm and dry, no rashes. Musculoskeletal: Neck is supple and nontender. Extremities are symmetrical. All joints range without pain or impingement. Psychiatric: No agitation. No depression. Database: EKG: EKG time is 5:17 p.m.; EKG shows a narrow complex normal sinus rhythm with a ventricular rate of 82. Low voltage noted throughout. The SD, QRS, QT intervals are within normal limits. There are no ST-T wave changes indicative of ischemic or injury pattern. No evidence of right heart strain. Interpreted by me. Imaging: CT abdomen and pelvis without contrast: Significant for emphysematous cystitis , lots of free air in the abdomen, not definitively explained by the emphysematous cystitis. Possible point of bowel perforation secondary to haziness in an area of the duodenum but not definitive, fair amount of fluid in the right cul-de-sac, infected fluid versus blood. Results were discussed with staff radiologist Dr. Mo Garcia. Procedures: Emergency department course: Triage vital signs reviewed. Without oxygen she was hypoxic in triage at 65%. Vital signs are otherwise unremarkable. She is afebrile. IV was placed. She was placed on a personnel monitor. She was placed on nasal cannula oxygen at 3 L , her pulse oximetry came up into the low to mid 90s with this. She was started on IV normal saline with 250-500 cc to be given over the next hour. EKG obtained and reviewed by myself. CT imaging of the abdomen and pelvis to be obtained. Contrast will be held secondary to renal insufficiency. Her medical records were reviewed. She is anemic from November of 2017 with a hemoglobin of 9.9 yesterday and a hemoglobin of 12.8 from November. She also has a creatinine of 1.9 yesterday compared to a creatinine of 0.9 in November of 2017. BUN was 45. 5:45 p.m., patient re-evaluated, vital signs reviewed, blood pressure currently 151/86, narrow complex sinus rhythm on the monitor rate of 72. She remains afebrile. Spoke with on-call hospitalist Dr. Pierre, case discussed in detail with him. He accepts this patient for admission to the step-down unit. Waiting on urinalysis. General surgery paged. 6:40 p.m., patient resting comfortable. Blood pressure currently 152/100, heart rate 88. The patient is Hemoccult positive. Free air is likely from perforated duodenal ulcer given BUN to creatinine ratio. Awaiting callback from general surgery. Urinalysis pending. Patient will be started on IV ciprofloxacin and Flagyl in the emergency department. 6:50 p.m., I spoke with on-call general surgeon Dr. Rocky Noriega. Case discussed with him in detail. He will see this patient shortly. 7:15 p.m., the patient is currently receiving her antibiotics, she will be given an additional 500 cc of IV normal saline while in the emergency department. Dr. Sotomayor just saw her in the emergency department. Plan right now will be to observe her overnight and repeat CT imaging in the morning to hopefully further clarify the source of free air in her abdomen. This study will be done with oral contrast. The patient was admitted to the step-down unit in guarded condition. Differential Diagnosis: The differential diagnosis on this patient includes but is not limited to perforated peptic ulcer, hypoxia, dehydration with pre renal azotemia, anemia, emphysematous cystitis. This represents a partial list of diagnoses considered. These considerations are based on history, physical exam, past history, reassessment and diagnostic testing. Smoking Status: Never smoked Constitutional: Initial Vital Signs Temperature (C) 36.9 C 04/10/18 15:34 Heart Rate 92 04/10/18 15:34 Respiratory Rate 14 04/10/18 15:34 Blood Pressure 134/63 H 04/10/18 15:34 O2 Sat (%) 65 L 04/10/18 15:34 O2 Delivery Mode Room Air O2 (L/minute) 3 Allergies/Adverse Reactions: amoxicillin trihydrate [From Augmentin] Allergy (Verified 04/10/18 15:32) SEVERE VOMITING budesonide [From Symbicort] Allergy (Verified 04/10/18 15:32) CHEST PAIN clindamycin Allergy (Verified 04/10/18 15:32) vomitting erythromycin base Allergy (Verified 04/10/18 15:32) Swelling/neck,face,throat fluticasone propionate [From Advair Diskus] Allergy (Verified 04/10/18 15:32) CHEST PAIN formoterol fumarate [From Symbicort] Allergy (Verified 04/10/18 15:32) chest pain meperidine HCl [From Demerol] Allergy (Verified 04/10/18 15:32) HALLUCINATIONS salmeterol xinafoate [From Advair Diskus] Allergy (Verified 04/10/18 15:32) CHEST PAIN tetracycline [Tetracycline] Allergy (Verified 04/10/18 15:32) throat swelling Home Medications: Medication Instructions Recorded Aspirin EC [Aspirin EC 81 mg (*)] 81 mg PO DAILY 03/19/16 Hydrochlorothiazide [HCTZ (*)] 25 mg PO DAILY 03/19/16 Nitroglycerin [Nitrostat 0.4 mg 0.4 mg SL Q5M PRN 03/19/16 (*)] morphINE SR [Ms Contin/Oramorph 15 15 mg PO TID 03/19/16 mg (*)] traZODone [traZODONE 100MG (*)] 100 mg PO HS 05/22/16 Ranitidine HCl [Zantac] 300 mg PO BID #0 03/25/17 Gabapentin [Neurontin 300 MG (*)] 300 mg PO TID #0 10/09/17 Rosuvastatin Calcium [Crestor 20mg 20 mg PO DAILY #0 10/09/17 (*)] Cyclobenzaprine [Cyclobenzaprine 5 mg PO DAILY 04/09/18 HCl] Losartan Potassium 100 mg PO DAILY 04/10/18 Potassium Cl [Klor-Con] 30 meq PO DAILY 04/10/18 ZOLPIDEM TARTRATE [Ambien CR 12.5 12.5 mg PO HS 04/10/18 mg] Medical Decision Making - Data Points Laboratory Results: Laboratory Results 04/10/18 17:05 04/10/18 17:05 Medications Given: Cyclobenzaprine HCl (Flexeril) 5 mg PO DAILY [facility] Stop: 10/08/18 08:59 Last Admin: 04/11/18 12:55 Dose: 5 mg Gabapentin (Neurontin) 300 mg PO TID JET Stop: 10/07/18 21:59 Last Admin: 04/11/18 15:47 Dose: 300 mg Heparin Sodium (Porcine) (Heparin Sc Injection) 5,000 unit SC Q8 JET Stop: 10/07/18 21:59 Last Admin: 04/11/18 05:52 Dose: 5,000 unit Metronidazole/Sodium Chloride (Flagyl 500 Mg (Premix)) 100 mls @ 100 mls/hr IV Q8HRS JET PRN Reason: Protocol Stop: 05/11/18 04:59 Last Admin: 04/11/18 15:14 Dose: 100 mls Levofloxacin/Dextrose (Levaquin 750 Mg (Premix)) 150 mls @ 100 mls/hr IV Q2D@ 0900 JET PRN Reason: Protocol Stop: 05/11/18 09:59 Last Admin: 04/11/18 13:09 Dose: 150 mls Morphine Sulfate (Ms Contin/Oramorph) 15 mg PO TID [facility] Stop: 04/20/18 21:59 Last Admin: 04/11/18 15:47 Dose: 15 mg Pantoprazole Sodium (Protonix) 40 mg IVP BID [facility] Stop: 10/07/18 20:59 Last Admin: 04/11/18 12:55 Dose: 40 mg Rosuvastatin Calcium (Crestor) 20 mg PO DAILY [facility] Stop: 10/08/18 08:59 Last Admin: 04/11/18 12:55 Dose: 20 mg Trazodone HCl (Trazodone) 100 mg PO HS [facility] Stop: 10/07/18 20:59 Last Admin: 04/10/18 21:40 Dose: 100 mg Zolpidem Tartrate (Ambien) 10 mg PO HS [facility] Stop: 10/07/18 20:59 Last Admin: 04/10/18 23:00 Dose: Not Given Discontinued Medications Famotidine (Pepcid) 20 mg PO BID [facility] Stop: 10/07/18 20:59 Last Admin: 04/10/18 21:40 Dose: 20 mg Sodium Chloride (Ns) 500 mls @ 0 mls/hr IV EDNOW ONE; Wide Open PRN Reason: Protocol Stop: 04/10/18 16:15 Last Admin: 04/10/18 17:29 Dose: 500 mls Ciprofloxacin/Dextrose (Cipro 400 Mg (Premix)) 200 mls @ 200 mls/hr IV EDNOW ONE PRN Reason: Protocol Stop: 04/10/18 19:43 Last Admin: 04/10/18 19:08 Dose: 200 mls Metronidazole/Sodium Chloride (Flagyl 500 Mg (Premix)) 100 mls @ 100 mls/hr IV EDNOW ONE PRN Reason: Protocol Stop: 04/10/18 19:44 Last Admin: 04/10/18 21:04 Dose: 100 mls Sodium Chloride (Ns) 500 mls @ 0 mls/hr IV EDNOW ONE; Wide Open PRN Reason: Protocol Stop: 04/10/18 19:19 Last Admin: 04/10/18 19:35 Dose: 500 mls Ceftriaxone Sodium/Dextrose (Rocephin 1 Gm (Premix)) 50 mls @ 100 mls/hr IV DAILY JET PRN Reason: Protocol Stop: 05/11/18 08:59 Last Admin: 04/11/18 10:38 Dose: Not Given Sodium Chloride (Ns) 1,000 mls @ 3,000 mls/hr IV ONCE ONE Stop: 04/11/18 09:15 Last Admin: 04/11/18 10:38 Dose: 1,000 mls Departure - Departure Disposition: [facility] Inpatient Acute Clinical Impression: Anemia, Dehydration, Renal insufficiency, Perforated duodenal ulcer, Transaminitis, Gastrointestinal bleeding, Emphysematous cystitis, Pneumoperitoneum
[2018-04-10 17:20] LABS: PLATELET COUNT 170 10^3/uL (150-400)
[2018-04-10 17:30] LABS: INR 1.71 (0.83-1.16); PROTIME(PATIENT) 20.2 SEC (12.0-15.0)
[2018-04-10] MEDS ORDERED: CIPROFLOXACIN 400 MG/DEXTROSE 200 ML IV ONE (18:44)
--- NOTE | 2018-04-10 19:39 | PDGENHP ---
History and Physical - Chief Complaint called to return to ED due to abnormal imaging findings - History of Present Illness 72y F with history of recent C diff infection, CAD, chronic pain with continuous opioid dependency, gastroparesis, peptic ulcer disease returns to ED after having abnormal imaging findings yesterday. The patient is a poor historian and most of history obtained from , who is at bedside. She initially went to her PCP at [facility] yesterday due to worsening abdominal pain. She had an x-ray of some kind (either abdomen or chest) that was reportedly concerning for free air under the diaphragm. She was sent to our ED. A CXR was done and was initially felt not to have free air so she was sent home. Radiology over-read this after she left the ED and reported that she did have free air. The patient was called today to return. She reports ongoing abdominal pain diffusely. No nausea, vomiting, or diarrhea. No fevers/chills. No blood in stool or hematemesis. Her does report that she takes ibuprofen regularly but is unable to quantify. reports that she has been relatively lethargic and slightly confused since this morning. In the ED, she was noted to have an elevated creatinine to 2.2 (previously normal at 0.9 however was up to 1.9 yesterday in the ED). A non-contrasted CT of her abdomen confirms free air. It also shows emphysematous cystitis. She does report several days of dysuria and urinary urgency. She was administered IV ciprofloxacin and flagyl. Surgery (Dr Sotomayor) was consulted. She is being admitted for further evaluation and management. Case discussed with ED physician Didier Zhao. History Information - Allergies/Home Medication List Allergies/Adverse Reactions: amoxicillin trihydrate [From Augmentin] Allergy (Verified 04/10/18 15:32) SEVERE VOMITING budesonide [From Symbicort] Allergy (Verified 04/10/18 15:32) CHEST PAIN clindamycin Allergy (Verified 04/10/18 15:32) vomitting erythromycin base Allergy (Verified 04/10/18 15:32) Swelling/neck,face,throat fluticasone propionate [From Advair Diskus] Allergy (Verified 04/10/18 15:32) CHEST PAIN formoterol fumarate [From Symbicort] Allergy (Verified 04/10/18 15:32) chest pain meperidine HCl [From Demerol] Allergy (Verified 04/10/18 15:32) HALLUCINATIONS salmeterol xinafoate [From Advair Diskus] Allergy (Verified 04/10/18 15:32) CHEST PAIN tetracycline [Tetracycline] Allergy (Verified 04/10/18 15:32) throat swelling Home Medications: Aspirin EC [Aspirin EC 81 mg (*)] 81 mg PO DAILY 03/19/16 [Last Taken 10/09/17] Hydrochlorothiazide [HCTZ (*)] 25 mg PO DAILY 03/19/16 [Last Taken 10/09/17] Nitroglycerin [Nitrostat 0.4 mg (*)] 0.4 mg SL Q5M PRN 03/19/16 [Last Taken 3 Months Ago ~07/10/17] morphINE SR [Ms Contin/Oramorph 15 mg (*)] 15 mg PO TID 03/19/16 [Last Taken 05:00] traZODone [traZODONE 100MG (*)] 100 mg PO HS 05/22/16 [Last Taken 10/09/17] Ranitidine HCl [Zantac] 300 mg PO BID #0 03/25/17 [Last Taken 10/10/17 05:00] Gabapentin [Neurontin 300 MG (*)] 300 mg PO TID #0 10/09/17 [Last Taken 05:00] Rosuvastatin Calcium [Crestor 20mg (*)] 20 mg PO DAILY #0 10/09/17 [Last Taken 10/09/17] Cyclobenzaprine [Cyclobenzaprine HCl] 5 mg PO DAILY 04/09/18 [Last Taken Unknown ] Losartan Potassium 100 mg PO DAILY 04/10/18 [Last Taken Unknown] Potassium Cl [Klor-Con] 30 meq PO DAILY 04/10/18 [Last Taken Unknown] ZOLPIDEM TARTRATE [Ambien CR 12.5 mg] 12.5 mg PO HS 04/10/18 [Last Taken Unknown ] I have personally reviewed and updated: family history, medical history, social history, surgical history - Past Medical History Additional medical history: 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 Review of Systems Review of Systems: ROS: 10pt was reviewed & negative except for what was stated in HPI & below Physical Exam Physical Exam: Temp Pulse Resp BP Pulse Ox 36.9 C 86 20 144/109 H 99 04/10/18 15:34 04/10/18 19:00 04/10/18 19:00 04/10/18 19:00 04/10/18 19:00 O2 (L/minute) 3 Constitutional: appears nourished, uncomfortable Eyes: PERRL, anicteric sclera Ears, Nose, Mouth, Throat: dry mucous membranes Cardiovascular: regular rate and rhythym, no murmur, rub, or gallop, No edema Respiratory: no respiratory distress, no rales or rhonchi, clear to auscultation , reduced air movement (right base) Gastrointestinal: tenderness (diffuse), other (decreased bowel sounds, soft abdomen), No guarding, No rebound Genitourinary: no bladder fullness, no bladder tenderness Skin: warm, normal color, no rashes or abrasions, no fluctuance, no induration, No mottled Musculoskeletal: full muscle strength Neurologic: CN II-XII Intact, other (alert, oriented x2, movign all extremities) Psychiatric: encephalopathic Lab Data & Imaging Review 04/10/18 17:05 04/10/18 17:05 WBC 9.30 10^3/uL (3.80-9.50) 04/10/18 17:05 RBC 3.63 10^6/uL (4.18-5.33) L 04/10/18 17:05 Hgb 10.3 g/dL (12.6-16.3) L 04/10/18 17:05 Hct 33.4 % (38.0-47.0) L 04/10/18 17:05 MCV 92.0 fL (81.5-99.8) 04/10/18 17:05 MCH 28.4 pg (27.9-34.1) 04/10/18 17:05 MCHC 30.8 g/dL (32.4-36.7) L 04/10/18 17:05 RDW 16.7 % (11.5-15.2) H 04/10/18 17:05 Plt Count 170 10^3/uL (150-400) 04/10/18 17:05 MPV 9.1 fL (8.7-11.7) 04/10/18 17:05 Neut % (Auto) 70.4 % (39.3-74.2) 04/10/18 17:05 Lymph % (Auto) 15.3 % (15.0-45.0) 04/10/18 17:05 Worth % (Auto) 12.8 % (4.5-13.0) 04/10/18 17:05 Eos % (Auto) 0.3 % (0.6-7.6) L 04/10/18 17:05 Baso % (Auto) 0.2 % (0.3-1.7) L 04/10/18 17:05 Nucleat RBC Rel Count 0.8 % (0.0-0.2) H 04/10/18 17:05 Absolute Neuts (auto) 6.55 10^3/uL (1.70-6.50) H 04/10/18 17:05 Absolute Lymphs (auto) 1.42 10^3/uL (1.00-3.00) 04/10/18 17:05 Absolute Monos (auto) 1.19 10^3/uL (0.30-0.80) H 04/10/18 17:05 Absolute Eos (auto) 0.03 10^3/uL (0.03-0.40) 04/10/18 17:05 Absolute Basos (auto) 0.02 10^3/uL (0.02-0.10) 04/10/18 17:05 Absolute Nucleated RBC 0.07 10^3/uL (0-0.01) H 04/10/18 17:05 Immature Gran % 1.0 % (0.0-1.1) 04/10/18 17:05 Immature Gran # 0.09 10^3/uL (0.00-0.10) 04/10/18 17:05 PT 20.2 SEC (12.0-15.0) H 04/10/18 17:05 INR 1.71 (0.83-1.16) H 04/10/18 17:05 APTT 29.5 SEC (23.0-38.0) 04/10/18 17:05 Sodium 133 mEq/L (135-145) L 04/10/18 17:05 Potassium 5.1 mEq/L (3.5-5.2) 04/10/18 17:05 Chloride 103 mEq/L (97-110) 04/10/18 17:05 Carbon Dioxide 22 mEq/l (22-31) 04/10/18 17:05 Anion Gap 8 mEq/L (6-14) 04/10/18 17:05 BUN 61 mg/dL (7-23) H 04/10/18 17:05 Creatinine 2.2 mg/dL (0.6-1.0) H 04/10/18 17:05 Estimated GFR 22 04/10/18 17:05 Glucose 86 mg/dL (70-100) 04/10/18 17:05 Calcium 8.9 mg/dL (8.5-10.4) 04/10/18 17:05 Total Bilirubin 1.3 mg/dL (0.1-1.4) 04/10/18 17:05 Conjugated Bilirubin 0.8 mg/dL (0.0-0.5) H 04/10/18 17:05 Unconjugated Bilirubin 0.5 mg/dL (0.0-1.1) 04/10/18 17:05 AST 3410 IU/L (14-46) H 04/10/18 17:05 ALT 1721 IU/L (9-52) H 04/10/18 17:05 Alkaline Phosphatase 107 IU/L (38-126) 04/10/18 17:05 Total Protein 6.4 g/dL (6.3-8.2) 04/10/18 17:05 Albumin 3.7 g/dL (3.5-5.0) 04/10/18 17:05 Urine Color BERTO 04/10/18 18:05 Urine Appearance MODERATELY TURBID 04/10/18 18:05 Urine pH 5.0 (5.0-7.5) 04/10/18 18:05 Ur Specific Volin 1.016 (1.002-1.030) 04/10/18 18:05 Urine Protein 2+ (NEGATIVE) H 04/10/18 18:05 Urine Ketones NEGATIVE (NEGATIVE) 04/10/18 18:05 Urine Blood 2+ (NEGATIVE) H 04/10/18 18:05 Urine Nitrate NEGATIVE (NEGATIVE) 04/10/18 18:05 Urine Bilirubin NEGATIVE (NEGATIVE) 04/10/18 18:05 Urine Urobilinogen 2.0 EU (0.2-1.0) H 04/10/18 18:05 Ur Leukocyte Esterase 1+ (NEGATIVE) H 04/10/18 18:05 Urine RBC 1-3 /hpf (0-3) 04/10/18 18:05 Urine WBC 25-50 /hpf (0-3) H 04/10/18 18:05 Ur Epithelial Cells TRACE /lpf (NONE-1+) 04/10/18 18:05 Amorphous Sediment PRESENT /hpf (NONE-1+) 04/10/18 18:05 Urine Bacteria 1+ /hpf (NONE SEEN) H 04/10/18 18:05 Urine Mucus TRACE /lpf (NONE-1+) 04/10/18 18:05 Urine Glucose NEGATIVE (NEGATIVE) 04/10/18 18:05 Stool Occult Bld Scrn POSITIVE (NEGATIVE) H 04/10/18 18:30 EKG additional interpertation: ECG: NSR, low voltage, no acute ischemic changes (interp by me) Assessment & Plan Assessment: 72y F with history of chronic O2 dependence, CAD, chronic pain with continuous opioid dependency, gastroparesis, peptic ulcer disease returns to ED after images from yesterday show free intra-abdominal air. Plan: #Free intra-abdominal air: With worsening anemia, elevated BUN, positive blood in stool, this is concerning for a perforated viscous. Interestingly, she does have emphysematous cystitis but it is unclear to me as to whether this could lead to this presentation. Recent C diff but this has resolved. - Ceftriaxone 1g q24h, flagyl 500mg q8h - General surgery consulted (Dr Sotomayor) - Pantoprazole 40mg IV BID - Keep NPO - Plan for CT abdomen/pelvis with PO and IV contrast in AM if renal function improved - May need GI consult #JAIDEN: FENa c/w prerenal etiology. - IVF, avoid nephrotoxins, recheck in AM #Emphysematous cystitis: She is having urinary symptoms c/w infection and abnormal UA. History of E coli UTIs in the past. - Ceftriaxone as above. I have ordered a urine culture as well #Anemia: Hgb about 2g lower than baseline. - Mgmt as above, follow H/H #Transaminitis: Possibly hypoperfusion but hasn't been hypotensive here. Liver appears normal on CT. - Check acute hepatitis panel, tylenol level - Will obtain RUQ ultrasound with doppler to eval for thrombus #Coagulopathy: Unclear etiology, potentially malnutrition? - Recheck in AM, if still elevated consider vit K #H/o C diff colitis: S/p fecal transplant. Resolved. #Chronic oxygen depedence: Reportedly due to permanently elevated R hemidiaphragm. At baseline O2 needs. #Chronic pain with opioid dependency: Continue home morphine and gabapentin. #Insomnia: Home meds. VTE ppx: SQH Code: full Dispo: Admit as inpatient
[2018-04-10] MEDS ORDERED: NS 1,000 ML IV SCH (19:45)
[2018-04-10 20:45] LABS: HEPATITIS A ANTIBODY IGM (BCH) NEGATIVE (NEGATIVE); HEPATITIS B CORE AB IGM NEGATIVE (NEGATIVE); HEPATITIS B SURFACE ANTIGEN NEGATIVE (NEGATIVE)
[2018-04-10 20:51] LABS: HEPATITIS C ANTIBODY TOTAL NEGATIVE (NEGATIVE)
[2018-04-10] MEDS ORDERED: FAMOTIDINE 20 MG TAB PO SCH (21:00)
[2018-04-10] MEDS: morphINE SR 15 MG TAB PO SCH (21:40)
[2018-04-10] MEDS: traZODone 100 MG TAB PO SCH (21:40)
[2018-04-10] MEDS: GABAPENTIN 300 MG CAP PO SCH (21:40)
--- NOTE | 2018-04-10 22:40 | CPEKG ---
Test Reason : OPEN Blood Pressure : / mmHG Vent. Rate : 082 BPM Atrial Rate : 083 BPM P-R Int : 152 ms QRS Dur : 080 ms QT Int : 391 ms P-R-T Axes : 067 114 072 degrees QTc Int : 457 ms Sinus rhythm Right axis deviation Low voltage, extremity and precordial leads Confirmed by Didier Zhao [id number] on 04/10/2018 10:39:38 PM Referred By: Didier Zhao Confirmed By:Didier Zhao
[2018-04-10] MEDS: HEPARIN 5,000 UNIT/0.5 ML INJ SC SCH (23:00)
[2018-04-10] MEDS: PANTOPRAZOLE SODIUM 40 MG VIAL IVP SCH (23:00)
[2018-04-10] MEDS: ZOLPIDEM TARTRATE 5 MG TAB PO SCH (23:00)
[2018-04-11] MEDS: HEPARIN 5,000 UNIT/0.5 ML INJ SC SCH (05:52)
[2018-04-11 06:29] LABS: PLATELET COUNT 147 10^3/uL (150-400)
[2018-04-11 06:54] LABS: INR 1.6 (0.83-1.16); PROTIME(PATIENT) 19.2 SEC (12.0-15.0)
--- NOTE | 2018-04-11 07:04 | GCON ---
[f rep st] CONSULTATION DATE OF CONSULTATION: 04/10/2018 CHIEF COMPLAINT: Abdominal free air with abdominal pain. HISTORY OF PRESENT ILLNESS: Briefly, this is a 72-year-old female who was originally evaluated by geoff roque her primary care and emergency department physician yesterday. Briefly, per her 's report, the patient has not really been feeling well for about the past 3 or 4 days, stating that the patien t has had some vague abdominal pain with urinary frequency and urgency. At any rate, the patient sub sequently made a visit with her primary care provider, who subsequently ordered some imaging which sh owed as though there was free air in the abdomen. The patient was subsequently referred here to our emergency department for evaluation. She was subsequently evaluated here and it is otherwise unclear to me why she was ultimately sent home, but at any rate, was done so. After which reads of her film s here, which confirmed intraabdominal free air, there were multiple attempts to reach the patient at home, which were unsuccessful though the attempts were fruitful earlier today and the patient subseq uently presents with her . Here, on my examination, the patient is confused. She knows she i s at a hospital in [place], but is fairly unaware as to her situation and really what is going on. S he does complain of a little bit of abdominal pain, but really has no other complaints. Her says that in her usual state of health, she is alert and oriented and has no mental defects. She mauricio s have a fair amount of past medical problems and is on a significant amount of medications, but othe r than that, denies any new acute findings. The patient does note having a gastric ulcer previously, but is not currently on medication. She has never had any operations on her foregut. PAST MEDICAL HISTORY: Oxygen-dependent, hypertension, coronary artery disease, hyperlipidemia, gastr oparesis, chronic pain, insomnia, rectal prolapse, and a paralyzed right hemidiaphragm. PAST SURGICAL HISTORY: Consistent for a hysterectomy. She has also had a vaginoplasty. No other ab dominal surgeries. ALLERGIES: The patient is allergic to amoxicillin, budesonide, clindamycin, erythromycin, fluticason e, formoterol, meperidine, salmeterol, tetracycline. CURRENT MEDICATIONS: Include aspirin, hydrochlorothiazide, nitroglycerin, morphine sulfate Contin, t razodone, ranitidine, gabapentin, rosuvastatin, cyclobenzaprine, losartan, potassium and Ambien. FAMILY HISTORY: Noncontributory. REVIEW OF SYSTEM: Unobtainable. PHYSICAL EXAMINATION: VITAL SIGNS: Temperature is 36.9, blood pressure is 132/87, heart rate is 87 and she is 94% on 3 L nasal cannula. CONSTITUTIONAL: She does appear distressed and uncomfortable. EYES: Her pupils are equal, round, and reactive to light and accommodation. Her extraocular moveme nts are intact. EARS, NOSE, MOUTH, THROAT: She has dry mucous membranes. Her hearing is normal. H er dentition appears normal. CARDIOVASCULAR: She has a regular rate and rhythm without any apprecia ble murmurs. RESPIRATORY: She has no respiratory distress, rales, or rhonchi. GI: Her abdomen is soft with normoactive bowel sounds. It is nondistended, nontender with no rebound tenderness or guar ding. Surgical scars consistent with previous history noted. SKIN: Warm, normal color. No rashes or abrasions. MUSCULOSKELETAL: Full strength. No tenderness with normal joint range of motion. NE UROLOGIC: She is alert and oriented x1. Her cranial nerves 2-12 do appear to be intact. There is n o appreciable weakness or numbness. PSYCH: She is anxious and somewhat confused. LYMPH/HEME/IMMUNO LOGIC: There is no cervical, groin, or supraclavicular lymphadenopathy appreciated. LABORATORY DATA: White blood cell count is 9.8, H and H are 9.9 and 31.5, platelets are 188. Coags are significant for an elevated INR at 1.7. Chemistry is remarkable for a low sodium at 132. Her BU N is elevated at 61 and her creatinine is 2.2 with elevated AST and ALT with 3,410 and 1,721. Her al k phos is normal. UA is significant for bacteria, white cells, leukocyte esterase, and protein. Occ ult blood in the stool is positive. IMAGING: Includes a chest x-ray from yesterday, which was reviewed, which shows intraabdominal free air. The patient also had a CT scan of her abdomen and pelvis without IV contrast secondary to acute kidney injury. These images were also personally reviewed, which show emphysematous cystitis with e xtravasation of gas into the adjacent soft tissues and along the right paracolic gutter. No signific ant focal thickening of any bowel loops. Small right pleural effusion and a mild amount of complex f luid suspected in the lower pelvis. ASSESSMENT AND PLAN: A 72-year-old female with multiple medical problems including emphysematous cys titis with intraabdominal free air. I was asked to evaluate the patient as to whether or not the pat ient had any inflammation and/or possible perforation of her duodenum as there was a question of this . Upon review of the films, I do not see any free air tracking from the area or anything that I woul d consider significant inflammation in the area; in addition, her abdominal exam currently is reassur ing, non peritoneal and clearly she requires resuscitation at the time. Plan will be to admit to the medical service. She has already been started on broad-spectrum IV anti biotics in the emergency department. We will continue to follow with you. I do feel as though once she is adequately resuscitated, we should either get an upper GI study or a CT scan with oral contras t just to evaluate the proximal GI tract, but again, based upon my review of the imaging and exam conner frederick at this point in time, I am fairly reassured by what I see. We will continue to follow with natanael day. My plan has been discussed with the emergency department physician as well as the patient's caron amado who has been at the bedside. /[id number]/MODL
[2018-04-11] MEDS ORDERED: NS 1,000 ML IV ONE (08:56)
--- NOTE | 2018-04-11 09:13 | HOSPPROG ---
Hospitalist Progress Note Assessment/Plan: # free intraperitoneal air - suspect from emphysematous cystitis but a very concerning finding; abd exam reassuring (+BS, non-peritoneal) - will check upper GI - cont levaquin and flagyl for now # emphysematous cystitis - old cultures reviewed - she had a resistant e. coli in 2014 - follow UCx - cont change ctx to levaquin # JAIDEN - clinical picture most consistent with pre-renal, possibly now ATN but also taking NSAIDs and ARB - she has not gotten significant IVF - will give an additional 1L bolus - will follow her UOP very closely - recent bladder scan at 17cc; low threshold to insert medina for I/O or concern for post-obstructive (no hydro on CT) # hepatitis - suspect shock liver, LFTs improved today - continue to follow # chronic pain on continuous narcotics - morphine and gabapentin # htn - hold hctz, losartan # dvt ppx - heparin Subjective: complains of hunger; no abd pain; per RN straight cathed for 500cc Objective: Vital Signs Temp Pulse Resp BP Pulse Ox 36.5 C 88 18 145/66 H 100 04/11/18 07:40 04/11/18 07:40 04/11/18 07:40 04/11/18 07:40 04/11/18 07:40 Laboratory Results 04/11/18 06:10 04/11/18 06:10 04/10/18 04/11/18 04/12/18 05:59 05:59 05:59 Intake Total 1100 Output Total 560 Balance 540 PT 19.2 SEC (12.0-15.0) H 04/11/18 06:10 INR 1.60 (0.83-1.16) H 04/11/18 06:[address] personally reviewed - Physical Exam Constitutional: no apparent distress, appears nourished Cardiovascular: regular rate and rhythym, no murmur, rub, or gallop Respiratory: no respiratory distress, no rales or rhonchi, clear to auscultation Gastrointestinal: normoactive bowel sounds, soft, non-tender abdomen, no palpable masses ICD10 Worksheet Patient Problems: Problems Problem Status Onset ESBL (extended spectrum beta-lactamase) producing bacteria infection Acute 06/25 Rectal prolapse Acute Rectal prolapse Acute Anemia Acute Dehydration Acute Renal insufficiency Acute Perforated duodenal ulcer Acute Transaminitis Acute Gastrointestinal bleeding Acute Emphysematous cystitis Acute
--- NOTE | 2018-04-11 09:23 | ASMTCASEMG ---
Living Arrangements What is your living Answers: With Spouse arrangement? Who do you live with? Type Of Residence What kind of residence do Answers: House you live in? Discharge Plan Comments Coordination Status Comments Notes: Patient is a 72yo female with hx of chronic O2 dependence, CAD,chronic pain, gastroparesis, peptic ulcer disease who returns to the ED after images from yesterday show free intra-abdominal air. Patient is being admitted for free intra-abdominal air, JAIDEN, emphysematous cystitis, anemia, transaminitis, and coagulopathy. No therapies ordered at this time. Patient is a poor historian but her provided history. D/C plan TBD. CM will follow. Date Signed: 04/11/2018 09:23 AM Electronically Signed By:Grecia Delacruz LCSW
[2018-04-11 11:06] LABS: CREATINE KINASE 95 IU/L (0-156)
--- NOTE | 2018-04-11 12:26 | PDMN ---
Medical Necessity Medical necessity: Pt meets IP criteria per MD & MCG; est los >2 mn for eval/tx of free intra-abdominal air possibly r/t emphysematous cystitis w/worsening abdominal pain, anemia & acute kidney injury; concern for perforated viscous; requiring further workup/monitoring, Surgery consult & IV abx; hx recent Cdiff colitis s/p fecal transplant; per H&P & order 04/10/18
[2018-04-11] MEDS: CYCLOBENZAPRINE 10 MG TAB PO SCH (12:55)
[2018-04-11] MEDS: GABAPENTIN 300 MG CAP PO SCH ×3 (12:55→21:35)
[2018-04-11] MEDS: morphINE SR 15 MG TAB PO SCH ×3 (12:55→21:35)
[2018-04-11] MEDS: ROSUVASTATIN CALCIUM 20 MG TAB PO SCH (12:55)
[2018-04-11] MEDS: PANTOPRAZOLE SODIUM 40 MG VIAL IVP SCH (12:55)
--- NOTE | 2018-04-11 14:54 | SOAPPROG ---
SOAP Progress Note Assessment/Plan: Assessment: 72yo F c emphysematous cystitis c pneumoperitoneum - VSS, HDS - abdominal exam remains reassuring - WBC WNL - UGI reviewed: no duo or gastric perf - Continue BS abx, resuscitation. Cr 2/3 today - will cont to follow with you but given reassuring UGI no acute GS needs at this time. Plan: 04/11/18 14:52 Subjective: feels better, more mentally stable Objective: Vital Signs Temp Pulse Resp BP Pulse Ox 36.3 C 83 20 147/68 H 97 04/11/18 11:42 04/11/18 11:42 04/11/18 11:42 04/11/18 11:42 04/11/18 11:42 Laboratory Results 04/11/18 06:10 04/11/18 06:10 04/10/18 04/11/18 04/12/18 05:59 05:59 05:59 Intake Total 1100 Output Total 560 250 Balance 540 -250 PT 19.2 SEC (12.0-15.0) H 04/11/18 06:10 INR 1.60 (0.83-1.16) H 04/11/18 06:10 ICD10 Worksheet Patient Problems: Problems Problem Status Onset Anemia Acute Dehydration Acute Emphysematous cystitis Acute Gastrointestinal bleeding Acute Perforated duodenal ulcer Acute Renal insufficiency Acute Transaminitis Acute ESBL (extended spectrum beta-lactamase) producing bacteria infection Acute 06/25 Rectal prolapse Acute Rectal prolapse Acute
--- NOTE | 2018-04-11 15:56 | GCON ---
[f rep st] GENERAL CONSULTATION PULMONARY/CRITICAL CARE CONSULTATION DATE OF ADMISSION: 04/10/2018 REFERRING PHYSICIAN: Yair Gonzalez MD REASON FOR REFERRAL: Evaluation and management of emphysematous cystitis, acute kidney injury, and elevated transaminases. HISTORY: The patient is a 72-year-old woman with history of recent C difficile infection who was admitted yesterday after having several days of abdominal pain. She saw her PCP and had an x-ray at that time, which apparently was suggestive of free air. She was sent to the emergency department, with initial evaluation felt there was not free air, but subsequently Radiology reviewed films and felt that there was free air. The patient was called back from home and was admitted to the hospital yesterday. She was given IV fluids and broad- spectrum antibiotics. She denies any nausea, vomiting, chills, fever, or bloody stools. She has been a bit lethargic and slightly confused. She has had some dysuria and urinary urgency. She currently reports that she is thirsty as she is n.p.o. PAST MEDICAL HISTORY: 1. Coronary artery disease. 2. Chronic pain with opioid dependency. 3. Gastroparesis. 4. Elevated right diaphragm. MEDICATIONS: At home: Aspirin, hydrochlorothiazide, MS Contin, trazodone, Zantac, Neurontin, Crestor, cyclobenzaprine, potassium, and Ambien. ALLERGIES: Augmentin, Symbicort, clindamycin, erythromycin, Advair, Demerol, and tetracyclines. SOCIAL HISTORY: She has never smoked and drinks alcohol just occasionally. She lives with her . FAMILY HISTORY: Unremarkable. REVIEW OF SYSTEMS: A 10-point review of systems adds nothing to the history of present illness. PHYSICAL EXAMINATION: GENERAL: The patient is somnolent, but arousable. She is somewhat confused. VITAL SIGNS: Blood pressure is 147/68, with a heart rate of 83. She is afebrile. Oxygen saturations are 97% on 5 L. HEENT: Normocephalic and atraumatic. No icterus. NECK: No JVD. Trachea is midline. CHEST: Decreased breath sounds in the right base. CARDIAC: Regular rate and rhythm without murmur. ABDOMEN: Soft. Bowel sounds are present. She has some mild tenderness to firm palpation. EXTREMITIES: No clubbing, cyanosis, or edema. NEURO: The patient is somnolent, but arousable. She has no gross motor or sensory deficits. LABORATORY/IMAGING: White blood count is 6.8, down from 9.3, hemoglobin is 10.1 ,a platelet count is 147. Chemistry group is remarkable only for a BUN of 59 with a creatinine of 2.3, her creatinine was 2.2 yesterday. AST is 2322, down from 3410 yesterday, ALT is 1313, down from 1721. Venous lactate is 0.7. INR is 1.6. Urinalysis shows 25 to 50 white blood cells. H hepatitis A, B, and C studies are negative. Blood cultures are pending. Chest x-ray from yesterday shows free air under the diaphragm. CT scan of the abdomen shows emphysematous cystitis with no other significant findings. Images reviewed by me. Esophagram does not demonstrate any extravasation. ASSESSMENT: 1. Emphysematous cystitis. This presented with free air under the diaphragm. The patient is clinically doing fairly well. She does not have a Lang in place. She is currently on Levaquin and Flagyl. 2. Acute kidney injury. The patient has fairly good urine output. She likely has acute kidney injury on the basis of acute tubular necrosis in response to significant inflammatory response in her peritoneal cavity. There does not seem to be any obstruction. 3. Elevated liver function tests. This also is likely due to her cystitis/ infection. The liver function tests have started to improve. Her INR is still mildly elevated. 4. Chronically elevated right diaphragm. RECOMMENDATIONS: 1. IV fluids. 2. Continue empiric antibiotics. 3. Hold off on Lang currently. 4. The patient is currently n.p.o., but could probably start to take p.o. 5. Follow renal function, cultures, and CBC closely. /[id number]/MODL MTDD
--- NOTE | 2018-04-11 16:16 | GCON ---
[f rep st] CONSULTATION DATE OF CONSULTATION: 04/11/2018 REASON FOR CONSULT: Emphysematous cystitis. HISTORY OF PRESENT ILLNESS: This is a pleasant 72-year-old female who is known to our urologic pract ice under the care of Dr. Yeboah. She presented to the emergency room from the [facility] PCP who did imaging for worsening abdominal pain that showed some free air under her diaphragm. Sh edith is reporting just diffuse abdominal pain but without nausea, vomiting, or diarrhea. report s that she had had some lethargy and slight confusion. She did indeed then have a noncontrast CT whi ch confirmed free air and showed emphysematous cystitis, and she has been started on Cipro and Flagyl at that time. ALLERGIES: Include Augmentin, Symbicort, clindamycin, erythromycin, fluticasone, Symbicort, Demerol, Advair, tetracycline. HOME MEDICATIONS: Aspirin, hydrochlorothiazide, nitroglycerin, morphine, trazodone, ranitidine, ignacio pentin, Crestor, cyclobenzaprine, losartan, potassium, Ambien. PAST MEDICAL HISTORY: C diff colitis, chronic O2 dependency, hemidiaphragm, hypertension, CAD, HLD, gastroparesis, chronic pain with continuous opioid dependency, insomnia, rectal prolapse, peptic ulce r disease. SURGICAL HISTORY: Rectal prolapse repair, cholecystectomy. FAMILY HISTORY: Not pertinent. SOCIAL HISTORY: Never smoker. Occasional alcohol use. Lives with her . REVIEW OF SYSTEMS: 12-point review of systems negative except as mentioned in HPI. PHYSICAL EXAM: GENERAL: Well-developed, well-nourished female in no acute distress. VITAL SIGNS: Her blood pressure is 147/68. Her heart rate is 83. O2 is 97% on 5 L per minute. Respiratory rate is 20. Temperature is 36.3. GENERAL: This a well-developed, well-nourished female in no acute dist ress. HEENT: Normocephalic, atraumatic. Extraocular movements are intact. NECK: Supple. No lymp hadenopathy. Trachea midline. RESPIRATORY: No accessory respiratory muscle use. CARDIAC: Regular rate and rhythm. No obvious JVD. GI: Abdomen is soft, nondistended, nontender to palpation. No h epatosplenomegaly. Normal bowel sounds. Not rigid. : No flank pain. No bladder distention or p ain on palpation. INTEGUMENT: No obvious rashes or lesions. NEURO: Patient is alert and oriented. Affect appropriate to situation. MUSCULOSKELETAL: She was examined while supine and not moving he r extremities. LABS: Her white blood cell count is 6.81, hemoglobin 10, hematocrit 32.8, platelets 147. Lactic aci d 0.7. Chemistry: Her sodium is 136, potassium 4.3, chloride 106, carbon dioxide 20, BUN 59, creati nine 2.3, calcium glucose 85. Urinalysis is positive for bacteria. Blood culture, urine cultures are still pending. She has a CT of the abdomen and pelvis which Dr. Torres and I have natan ellis reviewed which shows air in the bladder wall consistent with emphysematous cystitis but no sign of air in her kidneys and no sign of pyelonephritis. She does have a small amount of ascites on her ultrasound. ASSESSMENT: Emphysematous cystitis. PLAN: This case has been reviewed in detail with Dr. Torres and discussed with Dr. Stafford and Dr. Thelma naik. Recommend that she be continued on her IV antibiotics and supportive care. The free air in her bladder is consistent with emphysematous cystitis, and some of that peritoneal inflammation can give you some fluid in the pelvis but is otherwise nontoxic appearing female with stable vital signs and labs. Do not recommend more aggressive imaging or treatments. Consider repeat CT on Saturday if perti nent. Otherwise, be happy to see her in routine followup as outpatient or sooner as needed. /[id number]/MODL
[2018-04-11] MEDS ORDERED: CEFEPIME HCL 2 GM in NS 100 ML IV SCH (21:00)
[2018-04-11] MEDS: traZODone 100 MG TAB PO SCH (21:35)
[2018-04-11] MEDS: ZOLPIDEM TARTRATE 5 MG TAB PO SCH (21:35)
[2018-04-12] MEDS: PANTOPRAZOLE SODIUM 40 MG VIAL IVP SCH ×3 (00:44→20:01)
[2018-04-12] MEDS: ACETAMINOPHEN 325 MG TAB PO PRN ×3 (05:25→18:17)
[2018-04-12 06:20] LABS: PLATELET COUNT 132 10^3/uL (150-400)
[2018-04-12 06:42] LABS: INR 1.47 (0.83-1.16); PROTIME(PATIENT) 17.2 SEC (12.0-15.0)
[2018-04-12] MEDS ORDERED: D5W LR 1,000 ML IV SCH (07:00)
--- NOTE | 2018-04-12 09:34 | HOSPPROG ---
Hospitalist Progress Note Assessment/Plan: # free intraperitoneal air - suspect from emphysematous cystitis but a very concerning finding; abd exam reassuring (+BS, non-peritoneal) - upper GI ok - cont levaquin, stop flagyl # emphysematous cystitis - old cultures reviewed - she had a resistant e. coli in 2014 - follow UCx (GNR-LF) - cont levaquin # JAIDEN - clinical picture most consistent with pre-renal, possibly now ATN but also taking NSAIDs and ARB - output good, mild acidosis - change maintenance IVF to LR # hepatitis - suspect shock liver, LFTs continue to improve - continue to follow # chronic pain on continuous narcotics - morphine and gabapentin # htn - hold hctz, losartan # dvt ppx - heparin Subjective: Sleeping; no abdominal pain Objective: Vital Signs Temp Pulse Resp BP Pulse Ox 36.6 C 90 13 159/68 H 96 04/11/18 15:51 04/12/18 08:44 04/12/18 08:44 04/12/18 08:44 04/12/18 08:44 Laboratory Results 04/12/18 06:10 04/12/18 06:10 04/11/18 04/12/18 04/13/18 05:59 05:59 05:59 Intake Total 1100 2746 Output Total 560 1300 Balance 540 1446 PT 17.2 SEC (12.0-15.0) H 04/12/18 06:10 INR 1.47 (0.83-1.16) H 04/12/18 06:10 Chart reviewed including Karla Nicole's note Upper GI reviewed - Physical Exam Constitutional: no apparent distress, appears nourished Cardiovascular: regular rate and rhythym, no murmur, rub, or gallop Respiratory: no respiratory distress, no rales or rhonchi, clear to auscultation Gastrointestinal: normoactive bowel sounds, soft, non-tender abdomen ICD10 Worksheet Patient Problems: Problems Problem Status Onset ESBL (extended spectrum beta-lactamase) producing bacteria infection Acute 06/25 Rectal prolapse Acute Rectal prolapse Acute Anemia Acute Dehydration Acute Renal insufficiency Acute Perforated duodenal ulcer Acute Transaminitis Acute Gastrointestinal bleeding Acute Emphysematous cystitis Acute Pneumoperitoneum Acute
[2018-04-12] MEDS: GABAPENTIN 300 MG CAP PO SCH ×3 (09:45→20:02)
[2018-04-12] MEDS: morphINE SR 15 MG TAB PO SCH ×3 (09:45→20:02)
[2018-04-12] MEDS: CYCLOBENZAPRINE 10 MG TAB PO SCH (09:45)
[2018-04-12] MEDS: ROSUVASTATIN CALCIUM 20 MG TAB PO SCH (09:45)
[2018-04-12] MEDS: HEPARIN 5,000 UNIT/0.5 ML INJ SC SCH ×2 (15:50→20:01)
[2018-04-12] MEDS: ZOLPIDEM TARTRATE 5 MG TAB PO SCH (20:02)
[2018-04-12] MEDS: traZODone 100 MG TAB PO SCH (20:02)
[2018-04-13 03:38] LABS: PLATELET COUNT 150 10^3/uL (150-400)
[2018-04-13] MEDS: HEPARIN 5,000 UNIT/0.5 ML INJ SC SCH ×3 (05:46→22:02)
[2018-04-13] MEDS: CYCLOBENZAPRINE 10 MG TAB PO SCH (09:01)
[2018-04-13] MEDS: morphINE SR 15 MG TAB PO SCH ×3 (09:01→22:03)
[2018-04-13] MEDS: ROSUVASTATIN CALCIUM 20 MG TAB PO SCH (09:02)
[2018-04-13] MEDS: GABAPENTIN 300 MG CAP PO SCH ×3 (09:02→22:03)
[2018-04-13] MEDS: PANTOPRAZOLE SODIUM 40 MG VIAL IVP SCH ×2 (09:04→22:02)
--- NOTE | 2018-04-13 11:21 | SOAPPROG ---
SOAP Progress Note Assessment/Plan: Assessment: 72-YEAR-OLD FEMALE WITH EMPHYSEMATOUS CYSTITIS VITAL SIGNS STABLE/AFEBRILE/COMFORTABLE/VOIDING WELL/TOLERATING P.O. ABDOMEN SOFT NONTENDER WITH ACTIVE BOWEL SOUNDS Plan: PER INTERNAL MEDICINE/PROBABLY HOME TODAY 04/13/18 11:19 Objective: Vital Signs Temp Pulse Resp BP Pulse Ox 36.5 C 96 18 159/84 H 96 04/13/18 07:12 04/13/18 07:12 04/13/18 07:12 04/13/18 07:12 04/13/18 07:12 Microbiology 04/10/18 18:05 Urine Culture - Final Urine,Clean Catch Escherichia Coli Laboratory Results 04/13/18 03:00 04/13/18 03:00 04/12/18 04/13/18 04/14/18 05:59 05:59 05:59 Intake Total 2746 600 Output Total 1300 250 Balance 1446 350 PT 17.2 SEC (12.0-15.0) H 04/12/18 06:10 INR 1.47 (0.83-1.16) H 04/12/18 06:10 ICD10 Worksheet Patient Problems: Problems Problem Status Onset Anemia Acute Dehydration Acute Emphysematous cystitis Acute Gastrointestinal bleeding Acute Perforated duodenal ulcer Acute Pneumoperitoneum Acute Renal insufficiency Acute Transaminitis Acute ESBL (extended spectrum beta-lactamase) producing bacteria infection Acute 06/25 Rectal prolapse Acute Rectal prolapse Acute
--- NOTE | 2018-04-13 11:23 | SOAPPROG ---
SOAP Progress Note Assessment/Plan: Assessment: 72-YEAR-OLD FEMALE WITH EMPHYSEMATOUS CYSTITIS VITAL SIGNS STABLE/AFEBRILE/COMFORTABLE/VOIDING WELL/TOLERATING P.O. ABDOMEN SOFT NONTENDER WITH ACTIVE BOWEL SOUNDS Plan: PER INTERNAL MEDICINE/PROBABLY HOME TODAY 04/13/18 11:19 04/13/18 11:21 ASKED TO SEE PATIENT FOR POSSIBLE ILEUS AFTER BOUT OF EMPHYSEMATOUS CYSTITIS ABDOMEN IS SOFT NONTENDER WITH ACTIVE BOWEL SOUNDS AND SHE IS QUITE COMFORTABLE AFEBRILE CHEST CLEAR COR REGULAR RHYTHM HEENT NONICTERIC IMPRESSIONS NO EVIDENCE OF PERITONITIS OR INTRA-ABDOMINAL CONTAMINATION I THINK SHE COULD EASILY TOLERATE ADVANCING HER DIET Objective: Vital Signs Temp Pulse Resp BP Pulse Ox 36.5 C 96 18 159/84 H 96 04/13/18 07:12 04/13/18 07:12 04/13/18 07:12 04/13/18 07:12 04/13/18 07:12 Microbiology 04/10/18 18:05 Urine Culture - Final Urine,Clean Catch Escherichia Coli Laboratory Results 04/13/18 03:00 04/13/18 03:00 04/12/18 04/13/18 04/14/18 05:59 05:59 05:59 Intake Total 2746 600 Output Total 1300 250 Balance 1446 350 PT 17.2 SEC (12.0-15.0) H 04/12/18 06:10 INR 1.47 (0.83-1.16) H 04/12/18 06:10 ICD10 Worksheet Patient Problems: Problems Problem Status Onset Anemia Acute Dehydration Acute Emphysematous cystitis Acute Gastrointestinal bleeding Acute Perforated duodenal ulcer Acute Pneumoperitoneum Acute Renal insufficiency Acute Transaminitis Acute ESBL (extended spectrum beta-lactamase) producing bacteria infection Acute 06/25 Rectal prolapse Acute Rectal prolapse Acute
--- NOTE | 2018-04-13 12:14 | HOSPPROG ---
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 FQ's - cont rocephin # JAIDEN - clinical picture most consistent with pre-renal, possibly now ATN but also taking NSAIDs and ARB - slowly improving - recheck tomorrow # hepatitis - suspect shock liver, LFTs continue to improve # chronic pain on continuous narcotics - morphine and gabapentin # htn - start norvasc today # dvt ppx - heparin Subjective: continues to feel better; c/o muscle weakness that started a few weeks ago Objective: Vital Signs Temp Pulse Resp BP Pulse Ox 36.5 C 96 18 159/84 H 96 04/13/18 07:12 04/13/18 07:12 04/13/18 07:12 04/13/18 07:12 04/13/18 07:12 Microbiology 04/10/18 18:05 Urine Culture - Final Urine,Clean Catch Escherichia Coli Laboratory Results 04/13/18 03:00 04/13/18 03:00 04/12/18 04/13/18 04/14/18 05:59 05:59 05:59 Intake Total 2746 600 Output Total 1300 250 Balance 1446 350 PT 17.2 SEC (12.0-15.0) H 04/12/18 06:10 INR 1.47 (0.83-1.16) H 04/12/18 06:[address] paredes - Physical Exam Constitutional: no apparent distress, appears nourished Cardiovascular: regular rate and rhythym, no murmur, rub, or gallop Respiratory: no respiratory distress, no rales or rhonchi, clear to auscultation Gastrointestinal: normoactive bowel sounds, soft, non-tender abdomen, no palpable masses ICD10 Worksheet Patient Problems: Problems Problem Status Onset ESBL (extended spectrum beta-lactamase) producing bacteria infection Acute 06/25 Rectal prolapse Acute Rectal prolapse Acute Anemia Acute Dehydration Acute Renal insufficiency Acute Perforated duodenal ulcer Acute Transaminitis Acute Gastrointestinal bleeding Acute Emphysematous cystitis Acute Pneumoperitoneum Acute
[2018-04-13] MEDS: traZODone 100 MG TAB PO SCH (22:02)
[2018-04-13] MEDS: ZOLPIDEM TARTRATE 5 MG TAB PO SCH (22:03)
[2018-04-14] MEDS ORDERED: POTASSIUM CL 20 MEQ TAB PO ONE ×2 (06:23→13:44)
[2018-04-14] MEDS ORDERED: NS W/ 20 KCl/L 1,000 ML IV SCH (06:30)
[2018-04-14] MEDS: HEPARIN 5,000 UNIT/0.5 ML INJ SC SCH ×2 (06:46→13:53)
[2018-04-14] MEDS: PANTOPRAZOLE SODIUM 40 MG VIAL IVP SCH (09:11)
[2018-04-14] MEDS: GABAPENTIN 300 MG CAP PO SCH ×2 (09:14→15:59)
[2018-04-14] MEDS: CYCLOBENZAPRINE 10 MG TAB PO SCH (09:14)
[2018-04-14] MEDS: ROSUVASTATIN CALCIUM 20 MG TAB PO SCH (09:14)
[2018-04-14] MEDS: morphINE SR 15 MG TAB PO SCH ×2 (09:14→15:59)
--- NOTE | 2018-04-14 10:06 | ASMTCMCOM ---
CM Note CM Note Notes: Met with patient to discuss discharge plan. Patient states she is feeling much better. She lives at home with her and wears O2 at night at baseline. She declines the need for any HHC at this time, states her is very supportive. Therapy has signed off. CM available should needs arise. Plan: Independent Date Signed: 04/14/2018 10:05 AM Electronically Signed By:Shu Saldana RN
[2018-04-14] MEDS ORDERED: VANCOMYCIN 125 MG/2.5 ML UDL PO SCH (13:45)
[2018-04-14 16:05] VITALS: BP 172/93
--- NOTE | 2018-04-14 17:42 | GDS ---
[f rep st] DISCHARGE SUMMARY ALL DIAGNOSES: 1. Emphysematous cystitis. 2. Free intraperitoneal air. 3. Acute kidney injury. 4. Acute hepatitis. 5. Chronic pain on continuous narcotics. 6. Hypertension. 7. Hypokalemia. ALL CONSULTATIONS: 1. General Surgery Dr. Omer. 2. Urology, Dr. Torres. HOSPITAL COURSE: This is a 72-year-old female who was found to have free intraperitoneal air. Thus, she was admitted. Abdominal exam, lack of a white count, afebrile presentation and no bowel perfora tion was noted on imaging. The most remarkable on imaging was severe emphysematous cystitis. In con sultation with both General Surgery as well as Urology, the most likely etiology of her free air is e mphysematous cystitis itself which is a rare complication. She did undergo an upper GI study with Ga strografin which showed no evidence of extravasation of contrast. She has been treated conservativel y with antibiotics for her emphysematous cystitis, which has been shown to be E coli resistant to flu oroquinolones. She had initially presented with acute kidney injury. A creatinine of 2.3 and hepati tis with an AST of 2300 and ALT of 1300. Her labs have shown significant improvement as has her clin ical picture. She is eating, having bowel movements. She had 1 twinge of lower abdominal pain, cons istent with cystitis on the day of discharge. Repeat CT scan showed only improvement in the previous findings. Her creatinine on the day of discharge is 1.4. Her LFTs are AST 150, ALT of 453, and tot al bilirubin of 0.5, alkaline phosphatase of 89 on the day of discharge. I discussed this with her [facility] physician, Dr. Rebolledo, who will recheck her labs later this week or next week. She is discharged in stable condition with a few medication changes. She will get an additional 9 da ys of Keflex to complete a 14 day course. She did have a recent episode of C diff. Thus, I will giv e her prophylactic vancomycin at 125 mg twice a day to be extended 1 week beyond her Keflex. I have changed her antihypertensives from hydrochlorothiazide and losartan to amlodipine, given her kidney i njury. She is quite hypertensive at this point. She has had some mild hypokalemia, I have placed he r back on her home potassium on the day of discharge. FOLLOWUP: Dr. Rebolledo in 1-2 weeks. BILLING: I spent more than 30 minutes on the day of discharge coordinating her care. /[id number]/MODL
== END 2018-04-14 17:52 | disposition home or self-care (01) | DRG 690 ==
LOC: F2N 21:20 → F1N 04-12 14:56
PROVIDERS: ADMIT Internal Medicine; ATTEND Internal Medicine
DX: N30.80 Other cystitis without hematuria (principal); N17.9 Acute kidney failure, unspecified; F11.20 Opioid dependence, uncomplicated; B96.20 Unspecified Escherichia coli [E. coli] as the cause of diseases classified elsewhere; K75.9 Inflammatory liver disease, unspecified; G89.29 Other chronic pain; I10 Essential (primary) hypertension; E87.6 Hypokalemia; J98.6 Disorders of diaphragm; I25.10 Atherosclerotic heart disease of native coronary artery without angina pectoris; E78.5 Hyperlipidemia, unspecified; G47.30 Sleep apnea, unspecified; D64.9 Anemia, unspecified; Z99.81 Dependence on supplemental oxygen
CPT/HCPCS: 96374; 97161-GP; 97530-GP; G0472; G0480; J0696; J0744; J1644; J1956

== ENCOUNTER → 2018-05-19 | Outpatient (CLI) | payer OTHER | LOC: FIMAGING 14:25 | PROVIDERS: ATTEND Physician Assistant | DX: S13.140A Subluxation of C3/C4 cervical vertebrae, initial encounter (principal); M89.38 Hypertrophy of bone, other site; M50.323 Other cervical disc degeneration at C6-C7 level; Z98.1 Arthrodesis status ==